=== PATIENT | male | born 1950 | race Caucasian/White ===

== ENCOUNTER 2019-12-21 11:45 | Inpatient (IN) | payer MEDICARE, OTHER ==
[~2019-12-21] VITALS: Ht 180.3 cm; Wt 103.5 kg
[2019-12-21] MEDS ORDERED: SODIUM CHLORIDE 0.9% 1000ML 1,000 ML IV STA ×2 (12:01→13:35)
--- NOTE | 2019-12-21 12:42 | Diagnostic Imaging Report ---
EXAMINATION: CHEST SINGLE (PORTABLE) INDICATION: Fever COMPARISON: None FINDINGS: LINES/TUBES:None LUNGS:The lungs are well-inflated. No focal consolidation or pulmonary edema. PLEURA:No pleural effusion or pneumothorax. MEDIASTINUM:The cardiomediastinal silhouette appears normal in size and shape. BONES/SOFT TISSUES:No acute osseous injury. ABDOMEN:No free air under the diaphragm. IMPRESSION: No focal pneumonia or pulmonary edema. Signed by: Valentine Corbett MD on 12/21/2019 12:39 PM
[2019-12-21 12:47] LABS: BASOPHILS % 0.4 % (0.0-1.0); EOSINOPHILS % 0.2 % (0.0-6.0); HEMATOCRIT 37.1 % (38.2-49.6); HEMOGLOBIN 12.4 g/dL (14.0-18.0); LYMPHOCYTES # (AUTO) 1.1 (1.0-3.2); LYMPHOCYTES % 9.5 % (18.0-39.1); MEAN CORPUSCULAR HEMOGLOBIN 29.3 pg (28-32); MEAN CORPUSCULAR HGB CONC 33.4 g/dL (31-35); MEAN CORPUSCULAR VOLUME 87.7 fL (81-99); MONOCYTES # (AUTO) 0.4 (0.2-0.8); MONOCYTES % 3.9 % (4.4-11.3); NEUTROPHILS # (AUTO) 9.6 (2.1-6.9); NEUTROPHILS % 84.6 % (38.7-80.0); PLATELET COUNT 185 x10e3/uL (140-360); RED BLOOD COUNT 4.23 x10e6/uL (4.3-5.7); RED CELL DISTRIBUTION WIDTH 14.2 % (11.7-14.4)
--- NOTE | 2019-12-21 12:57 | Emergency Department Note ---
History of Present Illnes History of Present Illness Chief Complaint: General Medicine Complaints History of Present Illness This is a 69 year old male C/O GENERALIZED WEAKNESS DIZZINESS * CLIENT HERE FOR DIZZINESS THIS MORNING GETTING OUT OF BED, STATES THAT HE HAS BEEN FEELING WEAK. RUNNING LOW GRADE TEM OF 100.5, REFERRED BY DR. DEL REAL. Historian: Patient Arrival Mode: Car Onset (how long ago): week(s) (SEVERAL) Radiation: non-radiation, back, neck, extremity, abdomen, periumbilical, flank, proximal, distal, other Severity: moderate Onset quality: gradual Duration (how long): week(s) Timing of current episode: constant Progression: worsening Context: recent illness, recent surgery, recent immobilization, recent travel, trauma/injury, new medications, hx of DVT/PE, non-compliance w/ medications, other Relieving factors: none Exacerbating factors: none Treatments prior to arrival: none Past Medical/Family History Physician Review I have reviewed the patient's past medical and family history. Any updates have been documented here. Past Medical History Recent Fever: Yes Clinical Suspicion of Infectio: Yes New/Unexplained Change in Ment: No Past Medical History: Hypertension Past Surgical History: None Social History Smoking Cessation: Current some day smoker Counseling Performed: Yes Alcohol Use: Occasional Any Illegal Drug Use: No TB Exposure/Symptoms: No Physically hurt or threatened: No Other Any Pre-Existing Lines (PICC,: No Is patient up to date on immun: Yes Last Flu: utd Last Pneumovax: utd Review of Systems Review of Systems Constitutional: weakness, other (DIZZINESS) EENTM: no symptoms Cardiovascular: no symptoms Respiratory: no symptoms Gastrointestinal: no symptoms Genitourinary: no symptoms Musculoskeletal: no symptoms Neurological: weakness, other (DIZZINESS) Psychological: no symptoms Endocrine: no symptoms Hematological/Lymphatic: no symptoms Review of other systems All other systems reviewed and negative. Physical Exam Related Data Allergies: Coded Allergies: No Known Allergies (Unverified , 12/21/19) Triage Vital Signs Vital Signs Date Time Temp Pulse Resp B/P (MAP) Pulse Ox O2 Delivery O2 Flow Rate FiO2 12/21/19 11:58 97.4 110 22 101/59 95 Vital signs reviewed: Yes Physical Exam CONSTITUTIONAL Constitutional: well-developed, well-nourished HENT HENT: normocephalic, atraumatic, oropharynx clear/moist, nose normal HENT L/R: left ext ear normal, right ext ear normal EYES Eyes: PERRL, conjunctivae normal NECK Neck: ROM normal PULMONARY Pulmonary: effort normal, breath sounds normal CARDIOVASCULAR Cardiovascular: tachycardia GASTROINTESTINAL Abdominal: soft, nontender, bowel sounds normal GENITOURINARY Genitourinary: exam deferred SKIN Skin: warm, dry MUSCULOSKELETAL Musculoskeletal: ROM normal NEUROLOGICAL Neurological: alert, oriented x 3, no gross motor or sensory deficits PSYCHOLOGICAL Psychological: mood/affect normal, judgement normal Exam - additional comments C/O generalized weakness x 2 wks dizziness and near syncope this am sen by pcp sent to ed for eval pt denies cp spb n/v/d/rich Results Laboratory Laboratory Laboratory Tests Test 12/21/19 12:26 12/21/19 12:24 White Blood Count 11.35 x10e3/uL (4.8-10.8) Red Blood Count 4.23 x10e6/uL (4.3-5.7) Hemoglobin 12.4 g/dL (14.0-18.0) Hematocrit 37.1 % (38.2-49.6) Mean Corpuscular Volume 87.7 fL (81-99) Mean Corpuscular Hemoglobin 29.3 pg (28-32) Mean Corpuscular Hemoglobin Concent 33.4 g/dL (31-35) Red Cell Distribution Width 14.2 % (11.7-14.4) Platelet Count 185 x10e3/uL (140-360) Neutrophils (%) (Auto) 84.6 % (38.7-80.0) Lymphocytes (%) (Auto) 9.5 % (18.0-39.1) Monocytes (%) (Auto) 3.9 % (4.4-11.3) Eosinophils (%) (Auto) 0.2 % (0.0-6.0) Basophils (%) (Auto) 0.4 % (0.0-1.0) Neutrophils # (Auto) 9.6 (2.1-6.9) Lymphocytes # (Auto) 1.1 (1.0-3.2) Monocytes # (Auto) 0.4 (0.2-0.8) Eosinophils # (Auto) 0.0 (0.0-0.4) Basophils # (Auto) 0.0 (0.0-0.1) Absolute Immature Granulocyte (auto 0.16 x10e3/uL (0-0.1) Prothrombin Time 14.9 seconds (11.9-14.5) Prothromb Time International Ratio 1.10 Activated Partial Thromboplast Time 36.3 seconds (23.8-35.5) Sodium Level 132 mmol/L (136-145) Potassium Level 4.3 mmol/L (3.5-5.1) Chloride Level 100 mmol/L (98-107) Carbon Dioxide Level 19 mmol/L (22-29) Anion Gap 17.3 mmol/L (8-16) Blood Urea Nitrogen 58 mg/dL (7-26) Creatinine 4.08 mg/dL (0.72-1.25) Estimat Glomerular Filtration Rate 15 ML/MIN (60-) BUN/Creatinine Ratio 14 (6-25) Glucose Level 194 mg/dL (74-118) Lactic Acid Level 1.3 mmol/L (0.5-2.0) Calcium Level 8.9 mg/dL (8.4-10.2) Magnesium Level 2.1 MG/DL (1.3-2.1) Total Bilirubin 0.5 mg/dL (0.2-1.2) Aspartate Amino Transf (AST/SGOT) 119 IU/L (5-34) Alanine Aminotransferase (ALT/SGPT) 118 IU/L (0-55) Alkaline Phosphatase 91 IU/L (40-150) Creatine Kinase 805 IU/L (30-200) Creatine Kinase MB 6.00 ng/mL (0-5.0) Troponin I < 0.001 ng/mL (0-0.300) B-Type Natriuretic Peptide 75.1 pg/mL (0-100) Total Protein 7.9 g/dL (6.5-8.1) Albumin 3.3 g/dL (3.5-5.0) Globulin 4.6 g/dL (2.3-3.5) Albumin/Globulin Ratio 0.7 (0.8-2.0) Laboratory Tests Test 12/21/19 12:26 12/21/19 12:24 Lab results reviewed: Yes Imaging Imaging results reviewed: Yes Impressions IMPRESSION: No focal pneumonia or pulmonary edema. 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- denies cp sob n/v/d rich - Dr Aguilar in eval pt status - lab ekg ordered pt medicated w/ ns bolus pt medicated w/ 2nd liter ns Assessment & Plan Final Impression: (1) SYNCOPE AND COLLAPSE (2) HYPOTENSION, UNSPECIFIED (3) ACUTE KIDNEY FAILURE, UNSPECIFIED (4) RHABDOMYOLYSIS (5) DEHYDRATION Assessment & Plan Dr Aguilar in eval pt status discussed lab ekg cxr results plan of care and need for admit Dr Aguilar spoke w/ Dr Hopson will admit Depart Disposition: ADMITTED Last Vital Signs Date Time Temp Pulse Resp B/P (MAP) Pulse Ox O2 Delivery O2 Flow Rate FiO2 12/21/19 12:29 97.7 114 20 112/79 96 Medications in the ED Sodium Chloride 1,000 ml @ 0 mls/hr Q0M STAT IV Last administered on 12/21/19at 12:43; Admin Dose 999 MLS/HR; Start 12/21/19 at 12:01; Stop 12/21/19 at 12:02 DINESH DIAZ NP December 21, 2019 12:57
[2019-12-21 13:09] LABS: ALANINE AMINOTRANSFERASE 118 IU/L (0-55); ALBUMIN 3.3 g/dL (3.5-5.0); ALBUMIN/GLOBULIN RATIO 0.7 (0.8-2.0); ALKALINE PHOSPHATASE 91 IU/L (40-150); ANION GAP 17.3 mmol/L (8-16); BLOOD UREA NITROGEN 58 mg/dL (7-26); BUN/CREATININE RATIO 14 (6-25); CALCIUM 8.9 mg/dL (8.4-10.2); CARBON DIOXIDE 19 mmol/L (22-29); CHLORIDE 100 mmol/L (98-107); CREATINE KINASE 805 IU/L (30-200); CREATININE, SERUM 4.08 mg/dL (0.72-1.25); EST GLOMERULAR FILTRATION RATE 15 ML/MIN (60-); GLUCOSE 194 mg/dL (74-118); MAGNESIUM 2.1 MG/DL (1.3-2.1); POTASSIUM 4.3 mmol/L (3.5-5.1); SODIUM 132 mmol/L (136-145)
[2019-12-21 13:12] LABS: INR 1.1; PROTHROMBIN TIME 14.9 seconds (11.9-14.5)
[2019-12-21 13:13] LABS: PARTIAL THROMBOPLASTIN TIME 36.3 seconds (23.8-35.5)
[2019-12-21 13:24] LABS: B-TYPE NATRIURETIC PEPTIDE2 75.1 pg/mL (0-100)
[2019-12-21] MEDS ORDERED: ONDANSETRON HCL INJ 2MG/ML 2ML 2 MG/ML VIAL IV PRN ×2 (14:30→21:30)
[2019-12-21] MEDS ORDERED: CEFTRIAXONE SOD 1 GM/NS 50 ML 50 ML IV SCH (14:30)
--- OUTSIDE RECORDS SUMMARY | 2019-12-21 14:33 | XMS REPORT ---
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 Allergies, Adverse Reactions, Alerts This patient has no known allergies or adverse reactions. Medications This patient has no known medications. Procedures This patient has no known procedures. Results Test Description Test Time Test Comments Results Result Comments Source CHEST SINGLE (PORTABLE) 2019-12-21 12:38:00 [place] [address] Patient Name: BIANCA ALMEIDA MR #: [id number] : 1950 Age/Sex: 69/M Req #: [id number] Adm Physician: Ordered by: KATIE DOUGLAS MD Report #: [id number] Location: ER Room/Bed: Procedure: [id number] DX/CHEST SINGLE (PORTABLE) Exam Date: 12/21/19 Exam Time: 1200 REPORT STATUS: Signed EXAMINATION: CHEST SINGLE (PORTABLE) INDICATION: Fever COMPARISON: None FINDINGS: LINES/TUBES:None LUNGS:The lungs are well-inflated. No focal consolidation or pulmonary edema. PLEURA:No pleural effusion or pneumothorax. MEDIASTINUM:The cardiomediastinal silhouette appears normal in size and shape. BONES/SOFT TISSUES:No acute osseous injury. ABDOMEN:No free air under the diaphragm. IMPRESSION: No focal pneumonia or pulmonary edema. Signed by: Areli Enrique MD on 12/21/2019 12:39 PM Dictated By: ARELI ENRIQUE MD 1239 Transcribed By: REGGIE on 12/21/19 1239 COPY TO: KATIE DOUGLAS MD
--- NOTE | 2019-12-21 15:24 | NUR ---
infectious diseases consult [id number]
--- NOTE | 2019-12-21 15:49 | Diagnostic Imaging Report ---
EXAM: CT Chest WITHOUT intravenous contrast 12/21/2019 3:15 PM INDICATION: Shortness of breath COMPARISON: Chest radiograph of earlier the same day TECHNIQUE: Chest was scanned utilizing a multidetector helical scanner from the lung apex through the level of the adrenal glands without administration of IV contrast. Coronal and sagittal reformations were obtained. Routine protocol was performed. IV CONTRAST: None RADIATION DOSE: Total DLP: 2133 mGy*cm. Dose modulation, iterative reconstruction, and/or weight based adjustment of the mA/kV was utilized to reduce the radiation dose to as low as reasonably achievable. COMPLICATIONS: None FINDINGS: LINES/ TUBES: None. LUNGS AND AIRWAYS: The central airways are patent. No focal consolidation or pulmonary edema. 6 mm posterior left lower lobe pulmonary nodule (series 9 image 56). PLEURA: The pleural spaces are clear. HEART AND MEDIASTINUM: The thyroid gland is normal. No supraclavicular or axillary lymphadenopathy. Numerous prominent mediastinal lymph nodes, the largest of which measures up to 1.6 x 1.5 cm (image 37). The heart is at the upper limits of normal in size. No pericardial effusion. Scattered atherosclerotic calcifications involve the aorta and coronary arteries. UPPER ABDOMEN: No acute findings. Right upper pole renal cyst. Small sliding hiatal hernia. BONES: No acute osseous injury. No suspicious lytic or blastic lesions. SOFT TISSUES: Unremarkable. IMPRESSION: No focal pneumonia or pulmonary edema. Nonspecific prominent mediastinal lymph nodes measuring up to 1.5 cm. Left lower lobe 6 mm pulmonary nodule. If the patient is low risk, no further follow-up is necessary. If the patient is high risk, chest CT follow-up in 12 months is optional per Fleischner society guidelines 2017. Signed by: Valentine Corbett MD on 12/21/2019 3:46 PM
--- NOTE | 2019-12-21 16:10 | Diagnostic Imaging Report ---
Examination: CT BRAIN WO CONTRAST History:Dizziness. Comparison studies:None Technique: Axial images were obtained from the skull base to the vertex. Coronal and sagittal images reconstructed from the axial data. Dose modulation, iterative reconstruction, and/or weight based adjustment of the mA/kV was utilized to reduce the radiation dose to as low as reasonably achievable. Intravenous contrast: None Findings: Scalp: No abnormalities. Bones: No fractures, blastic or lytic lesions. Brain sulci: Appropriate for age. Ventricles: Normal in size and configuration. No hydrocephalus. Extra-axial space: No abnormalities. Parenchyma: There are patchy areas of hypoattenuation in the periventricular and subcortical white matter, nonspecific. No masses, hemorrhage, or acute or chronic cortical based vascular insults.. Sellar/suprasellar region: No abnormalities. Craniocervical junction: Patent foramen magnum. No Chiari one malformation. Incidental findings: Atherosclerotic calcification of the cavernous and supraclinoid internal carotid arteries. Impression: No acute intracranial abnormalities. Chronic microvascular ischemic change. Signed by: Dr. Luciana Andrade M.D. on 12/21/2019 4:06 PM
[2019-12-21 16:28] VITALS: BP 117/54
--- NOTE | 2019-12-21 16:30 | NUR ---
RECEIVED PATIENT FROM ER TO ROOM 185. HE IS IN STABLE CONDITION. PATIENT ORIENTED TO ROOM AND POLICIES. CALL LIGHT WITHIN REACH. BED IN THE LOWEST POSITION.
[2019-12-21 16:35] VITALS: BP 117/54
[2019-12-21] MEDS ORDERED: HYDRALAZINE HCL 20 MG/ML VIAL IV PRN (17:00)
[2019-12-21] MEDS: CEFTRIAXONE SOD 1 GM/NS 50 ML 50 ML IV SCH (17:05)
[2019-12-21] MEDS: ACETAMINOPHEN 325 MG TAB PO PRN (17:05)
[2019-12-21] MEDS: SODIUM CHLORIDE 0.9% 1000ML 1,000 ML IV SCH ×2 (17:05→22:30)
[2019-12-21] MEDS: FAMOTIDINE 20 MG/2 ML VIAL IV SCH (17:24)
[2019-12-21 17:30] VITALS: BP 117/54
--- NOTE | 2019-12-21 17:48 | NUR ---
LAB CALLED TO NOTIFY THAT PATIENT'S COVID RESULTS WERE NEGATIVE. CALLED DR. SHAH, PER MD KING TO TRANSFER PATIENT TO REGULAR FLOOR.
[2019-12-21 18:20] VITALS: BP 96/55
--- NOTE | 2019-12-21 18:27 | NUR ---
ARRIVED TO UNIT AT APPROXIMATELY 1812 ON 12/21/19. AAOX3. ACYANOTIC. O2 AT 2L VIA NASAL CANNULA. NO DISTRESS NOTED. CALL LIGHT IN REACH. SIDE RAILS UP X2. BED LOW.
--- NOTE | 2019-12-21 19:37 | NUR ---
Received change of shift report from AM nurse. Walking rounds completed
[2019-12-21 19:53] LABS: CREATINE KINASE 753 IU/L (30-200)
[2019-12-21 20:27] VITALS: BP 108/77
--- NOTE | 2019-12-21 21:07 | Diagnostic Imaging Report ---
History: Intravenous Comparison studies: Same-day head CT 12/21/2019 at 15:15 hours Technique: Sagittal and axial T2 FS, axial DWI, axial T2*GRE, axial T1 FLAIR and axial coronal T2 FLAIR. Intravenous contrast: None Findings: Exam is limited by artifacts related to patient motion. Scalp: Normal in signal. No masses. Bone marrow: Normal in signal intensity. Brain sulci: Appropriate for age. Ventricles: Normal in size. No hydrocephalus. Extra axial spaces: No mass, no fluid collection. Parenchyma: No mass, gross hemorrhage or acute ischemia. A few scattered T2 FLAIR hyperintense foci in the supratentorial white matter are nonspecific but are most compatible chronic microvascular ischemic changes. Suprasellar region: No abnormalities. Craniocervical junction: Patent foramen magnum. No Chiari malformation. Vessels: Normal flow-voids in the arteries and sinuses. Mastoid cavities: Nonspecific reactive right mastoid T2 hyperintense changes or effusion. Included paranasal sinuses: Scattered nonspecific mucosal thickening in the paranasal sinuses with small maxillary sinus retention cyst. IMPRESSION: Limited exam due to motion artifacts. In spite of limitations: 1. No acute intracranial abnormalities. 2. Mild chronic microvascular ischemic changes. Signed by: Dr. Blane Infante M.D. on 12/21/2019 9:03 PM
[2019-12-21] MEDS ORDERED: GUAIFENESIN/CODEINE 10 ML CUP PO PRN (21:30)
--- NOTE | 2019-12-21 22:42 | Consultation ---
DATE OF CONSULTATION: Pulmonary Critical Care Consultation` CHIEF COMPLAINT: Malaise and fatigue. REFERRING PHYSICIAN: Reginald Hopson MD. HISTORY OF PRESENT ILLNESS: The patient is 69-year-old man. He denies any prior cardiopulmonary history. He was feeling lightheaded and weak over the past several days. He therefore came to the ER and was discovered to have a creatinine of 4. He also had a fever in the emergency department although he denied any fevers at home. He does not complain of cough or difficulty breathing. PAST MEDICAL HISTORY: The patient denies any prior heart problems. He denies respiratory problems. PAST SURGICAL HISTORY: The patient denies any past surgeries. ALLERGIES: NO KNOWN DRUG ALLERGIES. SOCIAL HISTORY: The patient never smoked cigarettes. He says he did smoke cigars. He is not a drinker. FAMILY HISTORY: Noncontributory. REVIEW OF SYSTEMS: The patient was afebrile. He has no headache. He has no neck pain. He is not having any chest pain. He denies dyspnea or cough. He did not complain of any abdominal pain. There is no nausea or vomiting. He has no leg edema. PHYSICAL EXAMINATION: VITAL SIGNS: The patient is afebrile. The vital signs are stable. HEENT: No facial swelling or erythema. CARDIAC: Regular rate and rhythm with normal S1 and S2. LUNGS: Auscultation of the lungs reveals clear breath sounds bilaterally. There is no wheezing. ABDOMEN: Soft and nontender. There is no rebound or guarding. EXTREMITIES: No leg edema or calf tenderness. There is no cyanosis or clubbing. SKIN: No rashes. NEUROLOGICAL: No focal abnormalities. LABORATORY DATA: BUN to creatinine ratio is 58 is 4.08. Carbon dioxide is 19. Sodium is 132. Blood sugar is 194. AST is 119 and the ALT is 180. Albumin is 3.3. White blood cell count is 11.3 and hemoglobin is 12.4. The platelet count is 185,000. RADIOGRAPHIC DATA: CT scan of the chest shows nonspecific mediastinal lymph node enlargement measuring up to 1.5 cm. There is a 6 mm nodule in the left lower lobe. CT scan of the brain shows no acute disease. IMPRESSION: 1. Acute renal failure. 2. Fever of unclear etiology. 3. Pulmonary nodule. 4. Elevated AST and ALT consistent with some hepatic inflammation. PLAN: 1. The patient will receive intravenous fluids. 2. Renal ultrasound. 3. Panculture. The patient to begin antibiotics. 4. Followup CT as an outpatient in 6 months for the pulmonary nodule. MD MAYE Eagle/CONSTANTINE /[id number]
--- NOTE | 2019-12-21 22:47 | Consultation ---
DATE OF CONSULTATION: REASON FOR CONSULTATION: Fever, chills, fatigue. HISTORY OF PRESENT ILLNESS: Mr. Luz is very pleasant 69-year-old male who has history of diabetes mellitus, history of hypertension, comes in with fever and chills for 2 weeks, not feeling well, low fever, not feeling well in general. There is no other specific complaint. There is no cough, no shortness of breath. No sore throat, nausea, vomiting, diarrhea, urgency, frequency, or skin rash. The patient was sent here to be evaluated and is being admitted since the suspicion of COVID-19 is being ruled out. PAST MEDICAL HISTORY: Diabetes mellitus. PAST SURGICAL HISTORY: As above. ALLERGIES: NKA. SOCIAL HISTORY: There is no smoking, drug abuse, or alcohol abuse. FAMILY HISTORY: Otherwise, noncontributory. HOME MEDICATIONS: Reviewed. Chart reviewed. LABORATORY DATA: White count 11.35, hemoglobin 12. His BUN is 14, lactic acid 1.3. CT of the chest and brain was ordered, still pending. Chest x-ray showed no pneumonia. Since admission here, there is no fever. MEDICATIONS: He is currently on ceftriaxone. PHYSICAL EXAMINATION: GENERAL: He is currently alert and oriented, does not seem to be in acute distress. VITAL SIGNS: Stable. Currently afebrile. HEENT: He is not icteric. NECK: Supple. CHEST: Clear. HEART: S1, S2. ABDOMEN: Soft. IMPRESSION: Fever, chills, concerned about infection. Source is unclear. Agree with workup. We will put the patient on Rocephin for the time being. Recheck CBC. Recheck Chem panel. Further recommendations to follow. MD ESTELLA Garza/MODL /[id number]
[2019-12-22] VITALS (8 sets, daily range): BP systolic 121–142; BP diastolic 57–69
--- NOTE | 2019-12-22 | NUR ---
Dr Hatch on the floor to see patient. Will check orders.
--- NOTE | 2019-12-22 02:58 | Consultation ---
DATE OF CONSULTATION: 12/21/2019 Nephrology Consultation CHIEF COMPLAINT: Dizziness, dehydration, acute kidney injury. REASON FOR CONSULTATION: CYNDY. HISTORY OF PRESENT ILLNESS: A 69-year-old male, morbidly obese, very poor historian, has a history of hypertension, in which he takes antihypertensive medications. He reports to the ER with complaints of dizziness, lightheadedness, and fever ongoing for the last 2-3 days at home. 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 He reports that he has been drinking enough fluids and eating at home and also endorses some cough and some fever at home. He denies any sick exposures. When I interviewed him, I stated has he been at home over the last several weeks, he initially said yes, but then mentions to me that he works at a [employer], which he is around people. He denies anybody sick at the [email or web address]. He denies any chest pain, palpitation, nausea, or vomiting. The patient had a fever during my evaluation. He seems to be a bit confused when I talked to him, not sure with the patient's true baseline and there is no family at bedside. Nephrology was consulted for acute kidney injury presumed to be from underlying dehydration. He also had some underlying rhabdomyolysis. REVIEW OF SYSTEMS: Pertinent positives are cough, congestion, fever, weakness, dizziness. The rest of 14-point review of systems have been reviewed with the patient and are negative. ALLERGIES: NO KNOWN DRUG ALLERGIES. HOME MEDICATIONS: Currently not available at this time. PAST MEDICAL HISTORY: Reports having hypertension and he cannot tell me anything else. PAST SURGICAL HISTORY: Reports none. FAMILY HISTORY: Hypertension, diabetes. SOCIAL HISTORY: No drugs. No alcohol. Does not smoke. He works at a [employer]. PHYSICAL EXAMINATION: VITAL SIGNS: Temperature is 101.6, pulse 108, respiratory rate is 18, blood pressure 108/77, pulse ox 95% and he is on 2 L nasal cannula. GENERAL: Not in acute distress. He is alert, oriented x3. Cooperative on examination. HEENT: Head is normocephalic, atraumatic. Eyes; pupils are equal and reactive to light bilaterally. Extraocular movements are intact bilaterally. Throat; no evidence of erythema or exudates in the posterior pharynx. Has poor dentition. NECK: Supple. Good range of motion. PULMONARY: Clear to auscultation bilaterally. No wheezing, rales, or rhonchi. No crackles appreciated. CARDIOVASCULAR: Positive S1, S2. No murmurs, rubs, or gallops appreciated. ABDOMEN: Soft, nondistended, nontender to palpation. Bowel sounds present. MUSCULOSKELETAL: Strength is 5/5 throughout. No evidence of any muscle deficits on examination. No weakness appreciated. NEUROLOGIC: Cranial nerves 2 through 12 are grossly intact. No evidence of any neurological deficits on exam. SKIN: Intact. Warm to touch. Good cap refill. PSYCHIATRIC: Normal affect and mood. EXTREMITIES: No edema. Good range of motion throughout. LABORATORY DATA: White count 11.3, hemoglobin 12.4, hematocrit 37, platelets of 185. Coagulation; 14.9, INR 1.1, PTT 36. Chemistry; sodium 132, potassium 4.3, chloride is 100, bicarbonate is 19, his anion gap of 17, BUN is 58, creatinine is 4.08, GFR 15, glucose 194. Lactic acid 1.3, calcium 8.9, magnesium 2.1. LFTs show a total bilirubin is 0.5, AST is 119, ALT 118, alk phos 91. CK 805 downtrended to 753, CK-MB 6 then 8.1. Troponins negative x2. BNP 75. Total protein 7.9, albumin is 3.3. Coronavirus PCR nondetected. Influenza was negative. Microbiology; blood cultures no growth. IMAGING STUDIES: Chest x-ray shows no focal pneumonia or pulmonary edema. CT of the brain, no acute intracranial abnormality. CT chest shows no focal pneumonia or pulmonary edema. Nonspecific prominent mediastinal lymph node measuring 1.5 cm. Left lower lobe 6 mm pulmonary nodule. Outpatient followup is indicated. MRI of the brain shows no acute intracranial abnormality. Mild chronic microvascular ischemic changes. IMPRESSION: 1. Fever, presumed to be viral upper respiratory infection symptoms. 2. Acute kidney injury, likely secondary to dehydration. 3. Rhabdomyolysis. 4. Anion gap metabolic acidosis. PLAN: At this time, his electrolytes seem to be stable, but his BUN and creatinine are elevated likely to be from dehydration. Clinically, the patient looks dehydrated. We are going to avoid nephrotoxic agents and continue with IV fluids for now. We do not have any creatinines to compare in the past. We will get a renal ultrasound. In terms of his fever, his coronavirus PCR was found to be negative and his flu was negative. It could be he just has viral URI like symptoms. We are going to continue with IV Rocephin for now. His MRI and CT of the brain were found to be negative. At this time, the etiology of his fever is likely to be viral in nature. ID has been consulted. We will repeat chemistries in the morning. We will put him on Lovenox for DVT prophylaxis. MD RADHA Mariano/CONSTANTINE /[id number]
--- NOTE | 2019-12-22 03:33 | NUR ---
Patient denies pain or discomfort at this time.Continue monitor.
[2019-12-22] MEDS: CEFTRIAXONE SOD 1 GM/NS 50 ML 50 ML IV SCH ×2 (05:00→18:00)
[2019-12-22 05:51] LABS: BASOPHILS # (AUTO) 0.1 (0.0-0.1); BASOPHILS % 0.5 % (0.0-1.0); EOSINOPHILS % 0.1 % (0.0-6.0); HEMATOCRIT 34.6 % (38.2-49.6); HEMOGLOBIN 11.3 g/dL (14.0-18.0); LYMPHOCYTES # (AUTO) 1.1 (1.0-3.2); MEAN CORPUSCULAR HEMOGLOBIN 29.9 pg (28-32); MEAN CORPUSCULAR HGB CONC 32.7 g/dL (31-35); MEAN CORPUSCULAR VOLUME 91.5 fL (81-99); MONOCYTES # (AUTO) 0.3 (0.2-0.8); NEUTROPHILS # (AUTO) 9.2 (2.1-6.9); NEUTROPHILS % 85.6 % (38.7-80.0); PLATELET COUNT 160 x10e3/uL (140-360); RED BLOOD COUNT 3.78 x10e6/uL (4.3-5.7); RED CELL DISTRIBUTION WIDTH 14.5 % (11.7-14.4)
[2019-12-22 06:03] LABS: ALBUMIN 2.8 g/dL (3.5-5.0); ALBUMIN/GLOBULIN RATIO 0.7 (0.8-2.0); ANION GAP 14.5 mmol/L (8-16); CALCIUM 7.8 mg/dL (8.4-10.2); CREATINE KINASE 838 IU/L (30-200); CREATININE, SERUM 3.48 mg/dL (0.72-1.25); POTASSIUM 4.5 mmol/L (3.5-5.1)
[2019-12-22 06:27] LABS: CHOL/HDL RATIO 12.9 (3.9-4.7)
[2019-12-22 06:47] LABS: THYROID STIMULATING HORMONE 0.506 uIU/mL (0.350-4.940)
--- NOTE | 2019-12-22 08:01 | NUR ---
ASSUMED CARE AT APPROXIMATELY 0715. AWAKE AND ALERT. ACYANOTIC. NO DISTRESS NOTED. INSTRUCTED PATIENT TO INFORM HIS SPOUSE TO BRING HIS HOME MEDICINE LIST TODAY. PATIENT VERBALIZED UNDERSTANDING.
[2019-12-22] MEDS: FAMOTIDINE 20 MG/2 ML VIAL IV SCH ×2 (08:24→18:00)
--- NOTE | 2019-12-22 12:08 | NUR ---
CALLED PATIENT'S SPOUSE, ANNIE ALMEIDA, AT APPROXIMATELY 1202 VIA NUMBER PROVIDED ([phone]). THE PHONE RANG ONCE AND IMMEDIATELY WENT TO VOICEMAIL. CALL BACK NUMBER LEFT ON VOICEMAIL.
[2019-12-22 12:55] LABS: AMPHETAMINES SCREEN,URINE NEGATIVE (NEGATIVE); BENZODIAZEPINES SCREEN,URINE NEGATIVE (NEGATIVE); PHENCYCLIDINE SCREEN,URINE NEGATIVE (NEGATIVE)
[2019-12-22 13:08] LABS: CLARITY,URINE CLEAR (CLEAR); COLOR,URINE YELLOW (YELLOW)
[2019-12-22 13:09] LABS: BILIRUBIN,URINE NEGATIVE (NEGATIVE); KETONES,URINE NEGATIVE (NEGATIVE); LEUKOCYTE ESTERASE ,URINE NEGATIVE (NEGATIVE); NITRITE,URINE NEGATIVE (NEGATIVE); PROTEIN,URINE DIPSTICK 2+ (NEGATIVE); URINE UROBILINOGEN 0.2 mg/dL (0.2 - 1)
[2019-12-22 13:26] LABS: BACTERIA,URINE MANY /HPF; EPITHELIAL CELLS,URINE FEW /LPF
[2019-12-22] MEDS: SODIUM CHLORIDE 0.9% 1000ML 1,000 ML IV SCH ×3 (14:30→20:04)
[2019-12-22] MEDS ORDERED: ASPIR 8181 MG PO (14:37)
[2019-12-22] MEDS ORDERED: HYDROCHLOROTHIA25 MG PO (14:37)
[2019-12-22] MEDS ORDERED: ZYRTEC10 M3 PO (14:37)
[2019-12-22] MEDS ORDERED: CENTRUM SILVER1 EAC4 PO (14:37)
[2019-12-22] MEDS ORDERED: LISINOPRIL10 MG PO (14:37)
[2019-12-22] MEDS ORDERED: PEPCID20 MG PO (14:37)
--- NOTE | 2019-12-22 14:43 | NUR ---
PATIENT'S BROTHER CAME WITH PATIENT'S MEDICINES AND INFORMED PATIENT THAT ANNIE ALMEIDA IS VERY ILL. PATIENT THEN CHANGED VISITOR LIST TO DESIGNATE BROTHER THE VISITOR DURING THIS HOSPITAL ADMISSION.
[2019-12-22 14:51] LABS: CREATINE KINASE MB 10.9 ng/mL (0-5.0)
--- NOTE | 2019-12-22 16:00 | Progress Note ---
DATE: 12/22/2019 Nephrology Progress Note SUBJECTIVE: The patient is doing a little better today. Still has fever on and off. Coronavirus PCR will be repeated here later this afternoon. I spoke with ID, agrees with repeating the PCR due to elevated ferritin of greater than 8800. PHYSICAL EXAMINATION: VITAL SIGNS: Temperature is 99.7, T-max 101.6, pulse is 99, respiratory rate is 18, blood pressure 122/58, and pulse ox 95% on room air. GENERAL: In no acute distress, alert and oriented x3, cooperative on examination. HEENT: Head is normocephalic and atraumatic. Eyes, pupils are reactive to light bilaterally. Extraocular movements are intact bilaterally. Throat; no evidence of erythema or exudates in the posterior pharynx. Has poor dentition. NECK: Supple. Good range of motion throughout. PULMONARY: Clear to auscultation bilaterally. No wheezing, rales, or rhonchi. No crackles appreciated. CARDIOVASCULAR: Positive S1, S2. No murmurs, rubs, or gallops appreciated. ABDOMEN: Soft, nondistended, and nontender to palpation. MUSCULOSKELETAL: Strength is 5/5 throughout. No evidence of any muscle deficits on examination. No weakness appreciated. NEUROLOGIC: Cranial nerves II through XII grossly intact. No evidence of any neurological deficits on exam. SKIN: Intact. Warm to touch. Good cap refill. PSYCHIATRIC: Normal affect and mood. EXTREMITIES: No edema. Good range of motion throughout. LABORATORY FINDINGS: Showed white count 10.7, hemoglobin 11.3, hematocrit 35.6, and platelets of 160. Chemistry, sodium 132, potassium 4.5, chloride 104, bicarb 19, anion gap of 14, BUN is 60, creatinine is 3.48, and glucose is 129, hemoglobin A1c is 6.3. Lactic acid is 1.3. Calcium is 7.8. Ferritin level was found to be 8897. LFTs, total bilirubin is 0.5, AST 113, ALT 107, alkaline phosphatase 85, and LDH is still pending. Troponins were all negative. CK was 838. Albumin was 2.8. TSH is 0.506. LDL was 87. Urine drug screen was negative. Coronavirus PCR and flu were negative. MICROBIOLOGY: No growth. Urine cultures are pending. IMAGING STUDIES: CT of the abdomen and pelvis and carotid ultrasound study are pending. IMPRESSION: 1. Fever of unknown etiology. 2. Acute kidney injury secondary to dehydration. 3. Rhabdomyolysis. 4. Anion gap metabolic acidosis. PLAN: At this time, from a renal standpoint, his anion gap is 14, much improved and his bicarb is 19. He does have some acidosis. Creatinine down trending from 4 to 3.48. Continue with aggressive IV fluid hydration. Replace electrolytes. He does have an elevated ferritin, unknown cause. I did speak with ID, recommends repeating the coronavirus PCR, which we did. We also ordered a STAT ferritin level to confirm. Otherwise, etiology for his fever at this time is unknown. MD RADHA Mariano/MODL /[id number]
--- NOTE | 2019-12-22 16:10 | Progress Note ---
DATE: SUBJECTIVE: The patient's coronavirus PCR was negative. The patient has received fluids and the creatinine is decreased to 3.48. The patient still has fevers. PHYSICAL EXAMINATION: VITAL SIGNS: Blood pressure is 122/58 and saturation is 95%. The T max is 100.7 and the temperature is 99.7 now. HEENT: Shows no facial swelling or erythema. CARDIAC: Reveals regular rate and rhythm with normal S1, S2. LUNGS: Auscultation of lungs revealed clear breath sounds bilaterally. There is no wheezing. ABDOMEN: Soft, nontender. There is no rebound or guarding. EXTREMITIES: Show no leg edema or calf tenderness. There is no cyanosis or clubbing. SKIN: Shows no rashes. LABORATORY DATA: Creatinine is 3.48 and BUN is 60. The carbon dioxide is 19, and the sodium is 133. The albumin is 2.8. White blood cell count is 10.7, hemoglobin is 11.3, and the platelet count is 160. IMPRESSION: 1. Acute renal failure. 2. Fever of unclear etiology. 3. Pulmonary nodule. 4. Elevated AST and ALT. PLAN: 1. Continue IV hydration. 2. Continue to monitor creatinine. 3. Continue antibiotics. 4. Repeat coronavirus PCR to exclude the possible false-negative. 5. The patient will need a repeat CT scan in 6 months to follow up the pulmonary nodule. MD MAYE Eagle/PATSYL /[id number]
[2019-12-22] MEDS: ENOXAPARIN SOD INJ 40 MG/0.4 ML SYR SC SCH (18:00)
--- NOTE | 2019-12-22 19:20 | NUR ---
received report from day nurse. patient is resting comfortably in the bed. bed is in the lowest position and call andrea is within reach. will continue to monitor patient.
[2019-12-22] MEDS: ACETAMINOPHEN 325 MG TAB PO PRN (20:04)
[2019-12-23] VITALS (7 sets, daily range): BP systolic 115–142; BP diastolic 61–70
[2019-12-23] MEDS: SODIUM CHLORIDE 0.9% 1000ML 1,000 ML IV SCH ×3 (03:21→15:12)
[2019-12-23] MEDS: CEFTRIAXONE SOD 1 GM/NS 50 ML 50 ML IV SCH ×2 (05:13→16:33)
[2019-12-23 05:57] LABS: BASOPHILS % 0.2 % (0.0-1.0); EOSINOPHILS % 0.2 % (0.0-6.0); HEMATOCRIT 32.4 % (38.2-49.6); HEMOGLOBIN 10.5 g/dL (14.0-18.0); LYMPHOCYTES # (AUTO) 0.9 (1.0-3.2); LYMPHOCYTES % 7.7 % (18.0-39.1); MEAN CORPUSCULAR HEMOGLOBIN 29.1 pg (28-32); MEAN CORPUSCULAR HGB CONC 32.4 g/dL (31-35); MEAN CORPUSCULAR VOLUME 89.8 fL (81-99); MONOCYTES # (AUTO) 0.2 (0.2-0.8); MONOCYTES % 1.7 % (4.4-11.3); NEUTROPHILS # (AUTO) 10.9 (2.1-6.9); NEUTROPHILS % 89.1 % (38.7-80.0); PLATELET COUNT 134 x10e3/uL (140-360); RED BLOOD COUNT 3.61 x10e6/uL (4.3-5.7); RED CELL DISTRIBUTION WIDTH 14.9 % (11.7-14.4)
[2019-12-23 06:22] LABS: ALBUMIN 2.6 g/dL (3.5-5.0); ALBUMIN/GLOBULIN RATIO 0.7 (0.8-2.0); ANION GAP 14.6 mmol/L (8-16); CALCIUM 7.7 mg/dL (8.4-10.2); CREATININE, SERUM 3.65 mg/dL (0.72-1.25); POTASSIUM 4.6 mmol/L (3.5-5.1)
--- NOTE | 2019-12-23 06:31 | Diagnostic Imaging Report ---
EXAM: CT Abdomen and Pelvis WITHOUT contrast INDICATION: leukocytosis/fever COMPARISON: TECHNIQUE: Abdomen and pelvis were scanned utilizing a multidetector helical scanner from the lung base to the pubic symphysis without administration of IV contrast. Absence of intravenous contrast decreases sensitivity for detection of focal lesions and vascular pathology. Coronal and sagittal reformations were obtained. Routine protocol was performed. IV CONTRAST: None ORAL CONTRAST: None COMPLICATIONS: None RADIATION DOSE: Total DLP: 911 mGy*cm Estimated effective dose: (DLP x 0.015 x size factor) mSv CTDIvol has been reviewed. It is below the limits set by the Radiation Protocol Committee (RPC). Dose modulation, iterative reconstruction, and/or weight based adjustment of the mA/kV was utilized to reduce the radiation dose to as low as reasonably achievable. FINDINGS: LINES and TUBES: None. LOWER THORAX: Low density of blood pool in the left ventricular cavity. Mild cardiomegaly. Coronary artery calcifications. Aortic valve calcifications. HEPATOBILIARY: Hypodense liver. No focal hepatic lesions. No biliary ductal dilation. GALLBLADDER: No radio-opaque stones or sludge. No wall thickening. SPLEEN: No splenomegaly. PANCREAS: No focal masses or ductal dilatation. ADRENALS: No adrenal nodules KIDNEYS/URETERS: No hydronephrosis. No solid mass lesions. No stones. Simple right renal cysts, largest measures 4.3 cm. Bilateral perinephric fat stranding . GI TRACT: No abnormal distention, wall thickening, or evidence of bowel obstruction. Appendix is normal. PELVIC ORGANS/BLADDER: Unremarkable. LYMPH NODES: No lymphadenopathy. VESSELS: Scattered mild arterial vascular calcifications. PERITONEUM / RETROPERITONEUM: No free air or fluid. BONES: There are degenerative changes in the spine. SOFT TISSUES: There are fat containing inguinal hernias. IMPRESSION: 1. Coronary artery calcific atherosclerosis and mild cardiomegaly. 2. CT findings of anemia. 3. Hepatic steatosis. 4. Bilateral perinephric fat stranding is likely due to renal insufficiency or senescence, pyelonephritis is a less likely consideration. Correlate with urinalysis. Signed by: Talha Yang DO on 12/23/2019 6:27 AM
--- NOTE | 2019-12-23 06:34 | NUR ---
patient is resting comfortably in the bed. bed is in lowest position and call light is within reach.
--- NOTE | 2019-12-23 07:37 | NUR ---
ASSUMED CARE. RESTING IN BED WITH EYES CLOSED. NASAL CANNULA NOTED ON PATIENT'S PILLOW. ACYANOTIC. NO DISTRESS NOTED. CALL LIGHT IN REACH. SIDE RAILS UP X2. BED LOW.
[2019-12-23] MEDS: FAMOTIDINE 20 MG/2 ML VIAL IV SCH ×2 (09:11→16:33)
[2019-12-23] MEDS: FENOFIBRATE 145 MG TAB PO SCH (09:11)
[2019-12-23] MEDS: ASPIRIN 81 MG CHEW TAB PO SCH (09:11)
--- NOTE | 2019-12-23 10:09 | NUR ---
PATIENT AWAKE FROM NAP, CONFUSED. PATIENT PULLED IV FROM RIGHT HAND. BLEEDING CONTROLLED. NO DISTRESS NOTED.
--- NOTE | 2019-12-23 12:28 | Progress Note ---
DATE: SUBJECTIVE: Second coronavirus PCR was negative. The patient still complains of weakness and fatigue. He has some dyspnea and shortness of breath. He does not have fevers. PHYSICAL EXAMINATION: VITAL SIGNS: Saturation is 93% on room air. His blood pressure is 142/70 and his pulse is 102. HEENT: No facial swelling or erythema. CARDIAC: Regular rate and rhythm with normal S1 and S2. LUNGS: Auscultation of the lungs reveals a few expiratory wheezes bilaterally. ABDOMEN: Soft, nontender. There is no rebound or guarding. EXTREMITIES: 1 to 2+ leg edema. LABORATORY DATA: White blood cell count is 12.2 and hemoglobin is 10.5. The platelet count is 134,000. The BUN to creatinine ratio is 61 to 3.65 and the carbon dioxide is 18. IMPRESSION: 1. Acute renal failure. 2. Pulmonary nodule. 3. Fever of unclear etiology. 4. Elevated AST and ALT. 5. Anemia, unspecified. 6. Thrombocytopenia. PLAN: 1. Continue IV hydration. 2. Discuss case with Nephrology. 3. Await results of renal ultrasound. 4. Continue current antibiotics. Kenyon Patterson MD [facility]/MODL /[id number]
--- NOTE | 2019-12-23 14:37 | Diagnostic Imaging Report ---
Hepatobiliary Scan with Gallbladder Ejection Fraction Clinical information: RUQ abdominal pain Report: Following intravenous administration of 6.6 millicuries of Tc-99m mebrofenin, dynamic images of the abdomen in the anterior projection were obtained through 45 minutes. Sincalide (CCK analog) 2.4 micrograms was administered intravenously over 30 minutes with additional imaging for determination of gallbladder ejection fraction. Perfusion to the liver is normal. Extraction of tracer from the blood pool by the liver parenchyma is normal. Tracer is seen promptly within the biliary tract. The gallbladder begins to fill by 16 minutes post-injection of tracer and fills adequately. Tracer is seen in the small bowel by 12 minutes. The gallbladder ejection fraction with administration of sincalide is 99% (normal greater than 40%). Impression: 1. Filling of the gallbladder excludes the diagnosis of acute cystic duct obstruction/acute cholecystitis. 2. Normal gallbladder ejection fraction of 99% does not support the clinical diagnosis of chronic cholecystitis/gallbladder dyskinesia. Signed by: Dr. Lizzette Malhotra M.D. on 12/23/2019 2:33 PM
[2019-12-23 16:25] LABS: HIV 1&2 AB SCREEN NON-REACTIVE (NONREACTIVE)
[2019-12-23] MEDS: ENOXAPARIN SOD INJ 40 MG/0.4 ML SYR SC SCH (16:33)
--- NOTE | 2019-12-23 17:34 | Progress Note ---
DATE: 12/23/2019 Renal Progress Note SUBJECTIVE: The patient is doing well today with no complaints. He is in the process of getting an ultrasound of his right upper quadrant. PHYSICAL EXAMINATION: VITAL SIGNS: Temperature is 98.4, pulse 101, respiratory rate is 20, blood pressure 124/69, pulse ox 93% on room air. GENERAL: No acute distress, alert and oriented x3, cooperative on examination. HEENT: Head is normocephalic and atraumatic. Eyes, pupils are reactive to light bilaterally. Extraocular movements are intact bilaterally. Throat; no evidence of erythema or exudates in the posterior pharynx. Has poor dentition. NECK: Supple. Good range of motion throughout. PULMONARY: Clear to auscultation bilaterally. No wheezing, rales, or rhonchi. No crackles appreciated. CARDIOVASCULAR: Positive S1, S2. No murmurs, rubs, or gallops appreciated. ABDOMEN: Soft, nondistended, and nontender to palpation. Bowel sounds present. MUSCULOSKELETAL: Strength is 5/5 throughout. No evidence of any muscle deficits on examination. No weakness appreciated. NEUROLOGIC: Cranial nerves II through XII grossly intact. No evidence of any neurological deficits on exam. SKIN: Intact. Warm to touch. Good cap refill. PSYCHIATRIC: Normal affect and mood. EXTREMITIES: No edema. Good range of motion throughout. LABORATORY DATA: Labs show white count 12.2, hemoglobin 10.5, hematocrit 32, platelets of 134. Coagulation, PT 14, INR 1.1, PTT 36. Chemistry, sodium 133, potassium 4.2, chloride 105, bicarb 18, anion gap of 14, BUN is 61, creatinine is 3.65, glucose 127, hemoglobin A1c 6.3, ferritin level was 11,019, calcium 7.7, AST 153, ALT was 121. CK is 1014. Urinalysis; 2+ protein, 11 to 20 rbc's. Coronavirus review was found to be negative. Flu was negative. Hepatitis panel, EBV, CMV been ordered. Blood cultures, no growth. Urine cultures, no growth. IMAGING STUDIES: HIDA scan shows filling gallbladder excludes the diagnosis of acute cholecystitis. Normal ejection fraction of 99%. Does not support diagnosis of gallbladder dyskinesia. IMPRESSION: 1. Fever of unknown etiology. 2. Acute kidney injury, presumed to be from dehydration. 3. Rhabdomyolysis. 4. Anion gap metabolic acidosis. PLAN: At this time from a renal standpoint, his renal function has not improved. It did improve initially on admission down trended yesterday, but today it back up again. His ferritin is still elevated. His CK still elevated. I am not sure. It seems like this patient may have some rheumatological disorder going on at this time. From a renal standpoint, I would like to order a renal ultrasound, which will be performed tomorrow, urine electrolytes including urine sodium, urine chloride, UPC, microalbumin to creatinine, urine eosinophils as well as urine chloride for further assistance. Also go ahead and get a p-ANCA, c-ANCA, anti-GBM as well as UPEP, SPEP. We will also go ahead and get an HIV panel. Acute hepatitis panel has been ordered. Monitor his renal function closely. Put on a renal diet. MD RADHA Mariano/CONSTANTINE /[id number]
--- NOTE | 2019-12-23 18:33 | NUR ---
TRANSFERRED FROM ROOM 113. MADE COMFORTABLE. DENIES DISCOMFORT. ABLE TO MAKE NEEDS KNOWN. IN NO APPARENT DISTRESS. HAS A COUGH, BUT DENIES ANY PAIN OR SOB.
[2019-12-23] MEDS: ACETAMINOPHEN 325 MG TAB PO PRN (19:58)
--- NOTE | 2019-12-23 20:00 | NUR ---
Received change of shift report from AM nurse. Walking rounds completed.
[2019-12-23 21:32] LABS: CREATININE,URINE RANDOM 154.69 mg/dL (63-166); SODIUM,URINE 41 mmol/L
--- NOTE | 2019-12-23 21:35 | NUR ---
Patient temp at 102.7 and o2 sat at 88%. Patient given tylenol and placed on o2 at 3L n/c. Sat at 92-95%. Continue monitor.
--- NOTE | 2019-12-23 21:39 | NUR ---
Called And s/w Jami Bernard COMPLAINT CLERK. Informed of patient elevated temp and desat to 88%. Also informed her of daughter statement of possible black mold. Soctoe aware.
[2019-12-23 22:30] LABS: EOSINOPHIL SMEAR,URINE NONE SEEN (NONE SEEN)
[2019-12-24] VITALS (8 sets, daily range): BP systolic 91–136; BP diastolic 38–69
[2019-12-24] MEDS: CEFTRIAXONE SOD 1 GM/NS 50 ML 50 ML IV SCH ×2 (04:14→16:30)
[2019-12-24] MEDS: SODIUM CHLORIDE 0.9% 1000ML 1,000 ML IV SCH ×3 (06:30→22:30)
[2019-12-24 08:23] LABS: BASOPHILS % 0.2 % (0.0-1.0); EOSINOPHILS % 0.2 % (0.0-6.0); HEMATOCRIT 33.7 % (38.2-49.6); HEMOGLOBIN 10.7 g/dL (14.0-18.0); LYMPHOCYTES % 7.6 % (18.0-39.1); MEAN CORPUSCULAR HEMOGLOBIN 28.9 pg (28-32); MEAN CORPUSCULAR HGB CONC 31.8 g/dL (31-35); MEAN CORPUSCULAR VOLUME 91.1 fL (81-99); MONOCYTES # (AUTO) 0.3 (0.2-0.8); NEUTROPHILS # (AUTO) 11.6 (2.1-6.9); NEUTROPHILS % 89.2 % (38.7-80.0); PLATELET COUNT 132 x10e3/uL (140-360); RED CELL DISTRIBUTION WIDTH 15.6 % (11.7-14.4)
[2019-12-24] MEDS: FAMOTIDINE 20 MG/2 ML VIAL IV SCH ×2 (08:32→16:30)
[2019-12-24] MEDS: ASPIRIN 81 MG CHEW TAB PO SCH (08:32)
[2019-12-24] MEDS: FENOFIBRATE 145 MG TAB PO SCH (08:32)
[2019-12-24 09:06] LABS: ALBUMIN 2.5 g/dL (3.5-5.0); ALBUMIN/GLOBULIN RATIO 0.6 (0.8-2.0); ANION GAP 18.4 mmol/L (8-16); CALCIUM 7.9 mg/dL (8.4-10.2); CREATININE, SERUM 6.27 mg/dL (0.72-1.25); MAGNESIUM 2.3 MG/DL (1.3-2.1); POTASSIUM 5.4 mmol/L (3.5-5.1)
--- NOTE | 2019-12-24 09:18 | Diagnostic Imaging Report ---
EXAM: Right Upper Quadrant Ultrasound with Doppler INDICATION: Elevated LFTs COMPARISON: Abdominal CT 12/22/2019 TECHNIQUE: Transverse and longitudinal images of the right upper abdomen were obtained. Grayscale, color Doppler and spectral waveform analysis of the hepatic vasculature and splenic vein were performed. FINDINGS: Liver: Size: 15.5 cm in the right midclavicular line, normal Appearance: Increased echogenicity, smooth contour Mass: No focal masses Gallbladder: Stones/Sludge: None Wall: 0.24 cm Appearance: No pericholecystic fluid or hydrops. Sonographic Lynne's Sign: Negative Bile Ducts: Intrahepatic Ducts: No dilatation Extrahepatic Ducts: Common bile duct measures 0.33 cm, no dilatation Pancreas: Not seen. Right Kidney: Size: 14.8 cm Echogenicity: Normal Parenchymal thickness: Normal Collecting system: No hydronephrosis Stones: None Cyst/Mass: Simple right renal cyst. Vessels: Main Portal Vein: Diameter: 1 cm, normal. Normal flow direction. Aorta: Not seen. Inferior Vena Cava: Visualized portions are normal Free Fluid: No ascites or pleural effusion IMPRESSION: Hepatic steatosis. Benign appearing right renal cysts. Signed by: Talha Yang DO on 12/24/2019 9:14 AM
--- NOTE | 2019-12-24 09:19 | Diagnostic Imaging Report ---
EXAM: Renal Ultrasound INDICATION: Renal failure COMPARISON: Abdominal CT 12/22/2019 TECHNIQUE: Transverse and longitudinal images of the kidneys and bladder were obtained. FINDINGS: Right Kidney: Size: 14.12 cm Echogenicity: Normal Parenchymal thickness: Normal Collecting system: No hydronephrosis Stones: None Cyst/Mass: Simple cysts Left Kidney: Size: 10.95 cm Echogenicity: Normal Parenchymal thickness: Normal Collecting system: No hydronephrosis Stones: None Cyst/Mass: Simple cyst Bladder: Normal IMPRESSION: Simple cysts in the kidneys No hydronephrosis. Signed by: Talha Yang DO on 12/24/2019 9:16 AM
--- NOTE | 2019-12-24 12:42 | Progress Note ---
DATE: SUBJECTIVE: The patient is seen and evaluated. Available labs and notes reviewed. Discussed with the nurse. Discussed with Dr. Vargas. REVIEW OF SYSTEMS: The patient is now short of breath and currently on O2 nasal cannula and started to wheeze pulmonary clarke. OBJECTIVE: VITAL SIGNS: Had a maximum temperature 102.7 last night at 11:30 p.m. approximately, current temperature is 98, pulse is 109, respirations 24, and blood pressure 115/78. GENERAL: Seems to be alert and oriented x3. Responds appropriately, seems to be short of breath, on O2 nasal cannula, but patient denies shortness of breath. CV: S1 and S2. CHEST: Equal expansion with wheeze bilaterally. ABDOMEN: Soft, obese, and nontender. HEENT: Moist. No pallor. No JVD. EXTREMITIES: Right foot toes cold. Other than that, no significant edema and moves all. MEDICATIONS: Medication list reviewed from Infectious Disease point of view. The patient is on Rocephin. LABORATORY STUDIES: White count of 13.06, hemoglobin 10.7, platelets 132, which is dropping. Sodium 134, potassium 5.4, creatinine is 6.27. AST of 148, slightly improved. ALT 122, no significant change with ALP of 111. Creatine kinase is 691, improved from 1014 and his last ferritin level on 12/21 was 56227.56. His albumin is 2.5 with total protein of 6.9. MICROBIOLOGY: Blood culture 12/21/2019 is negative so far. Urine culture 12/21/2019 negative so far. IMAGING: Renal ultrasound showed simple cyst in the kidneys. No hydronephrosis. HIDA scan was negative for acute cholecystitis. Abdominal ultrasound, benign-appearing right renal cysts with no acute finding. ASSESSMENT AND PLAN: 1. Fever. 2. Overall, no significant change as far as workup, coronavirus PCR was negative on 12/22/2019 and 12/21/2019. We will follow up with CMV EBV hepatitis panel and toxo levels, his influenza type A and B antigen and HIV negative. The patient remains on Rocephin. Continue to monitor. 3. Rhabdomyolysis. 4. Renal insufficiency. 5. Elevated LFT. 6. Elevated ferritin level. 7. Leukocytosis, slightly. This patient started having poor appetite and has no diarrhea. Please refer to chart for further information. Discussed with Dr. Vargas in details. Further management of this patient is based on daily findings on laboratory and physical examination. Dictated by Beni Tompkins) LLOYD Hooks MD [facility] Garza/CONSTANTINE /[id number]
[2019-12-24 12:59] LABS: ANISOCYTOSIS SLIGHT; BAND NEUTROPHILS % (MANUAL) 5 %; LYMPHOCYTES % (MANUAL) 7 % (19-48); NEUTROPHILS % (MANUAL) 88 % (40-74); PLATELET ESTIMATE SLIGHTLY DECREASED; PLATELET MORPHOLOGY COMMENT NORMAL; RBC MORPHOLOGY COMMENT NORMAL
--- NOTE | 2019-12-24 13:15 | NUR ---
patient up in recliner, Not in any distress, he pulled the IV out, he is on 02 NC 2L, Daughter at bed side
--- NOTE | 2019-12-24 13:23 | NUR ---
NOTIFIED POTASSIUM LEVEL TO [employer], NO NEW ORDERS, PATIENT NOT IN ANY DISTRESS
[2019-12-24] MEDS ORDERED: FUROSEMIDE INJ 10 MG/ML 4 ML VIAL IV SCH (13:40)
--- NOTE | 2019-12-24 14:47 | NUR ---
Dr Hatch in patient room talking to his daughter, new orders recvd
--- NOTE | 2019-12-24 15:03 | NUR ---
Daughter at bed side she stated that ' she gonna move to patient to medical center and she said no need to start a new IV. She said she want to talk to attending Dr and trying to move the patient, explained her that Dr Hatch ordered IV Lasix for patient.
[2019-12-24 15:28] LABS: ANION GAP 18.6 mmol/L (8-16); CALCIUM 8.2 mg/dL (8.4-10.2); CREATININE, SERUM 6.97 mg/dL (0.72-1.25)
[2019-12-24 15:33] LABS: POTASSIUM 5.6 mmol/L (3.5-5.1)
--- NOTE | 2019-12-24 16:20 | NUR ---
attemped X2 to call Dr Hatch with the Lab results
[2019-12-24] MEDS: ENOXAPARIN SOD INJ 40 MG/0.4 ML SYR SC SCH (16:30)
[2019-12-24] MEDS ORDERED: ONDANSETRON HCL 4 MG ORAL DISINTEGRATING TAB PO PRN (17:00)
--- NOTE | 2019-12-24 18:32 | NUR ---
Notified Dr Hatch regarding BMP results . New Orders recvd , talked to daughter, Patient up in bed, not in any acute distress, on O2 NC 2L, Keep monitoring.
[2019-12-24] MEDS ORDERED: SOD POLYSTYRENE SULFONATE SUSP 15 GM/60 ML BTL PR ONE ×2 (19:30→20:45)
[2019-12-24] MEDS ORDERED: FUROSEMIDE INJ 10 MG/ML 10 ML VIAL IV ONE (19:30)
[2019-12-24] MEDS ORDERED: FUROSEMIDE INJ 10 MG/ML 4 ML VIAL IV ONE ×2 (19:45→20:45)
--- NOTE | 2019-12-24 21:35 | NUR ---
Patient became SOB with sat 83,84 maintained. Increased o2 to 4-5 L with no changes noted. Rapid called. Patient placed on bypap. o2 at 100%. Daughter at bedside. Dr Hopson called and left message. Called Clarence to inform of patient condition. Patient to ICU 195.
--- NOTE | 2019-12-24 21:47 | NUR ---
Received change of shift report from AM nurse. Walking rounds completed.
--- NOTE | 2019-12-24 21:50 | NUR ---
Daughter want to d/c patient and take him to [facility]. S/W Clarence. Also s/w Dr Hopson. Informed House sup. she s/w daughter. Dr Hopson s/w daughter over the telephone and agreed to meet with daughter in AM. Daughter will stay with patient abimbola Dawson. Patient given Lasix and kaxalate. Continue monitor.
--- NOTE | 2019-12-24 22:15 | NUR ---
Patient became very SOB with o2 sat 82-83%. Called for RT. Rapid called. Patient placed on a bypap and transferred to ICU room 195. Dr Hopson informed. Clarence informed. And daughter was at bedside and was brief on patient condition. Blood drawn. IV started to right AC 20G. Patient transferred to ICU.
[2019-12-24 22:45] LABS: BASOPHILS % 0.3 % (0.0-1.0); EOSINOPHILS # (AUTO) 0.1 (0.0-0.4); EOSINOPHILS % 0.4 % (0.0-6.0); HEMATOCRIT 35.4 % (38.2-49.6); HEMOGLOBIN 11.2 g/dL (14.0-18.0); LYMPHOCYTES # (AUTO) 1.3 (1.0-3.2); LYMPHOCYTES % 9.1 % (18.0-39.1); MEAN CORPUSCULAR HEMOGLOBIN 29.3 pg (28-32); MEAN CORPUSCULAR HGB CONC 31.6 g/dL (31-35); MEAN CORPUSCULAR VOLUME 92.7 fL (81-99); MONOCYTES # (AUTO) 0.3 (0.2-0.8); MONOCYTES % 2.3 % (4.4-11.3); NEUTROPHILS # (AUTO) 12.4 (2.1-6.9); NEUTROPHILS % 87.1 % (38.7-80.0); PLATELET COUNT 136 x10e3/uL (140-360); RED BLOOD COUNT 3.82 x10e6/uL (4.3-5.7); RED CELL DISTRIBUTION WIDTH 15.9 % (11.7-14.4)
[2019-12-24] MEDS ORDERED: METHYLPREDNISOLONE SOD SUCC 125 MG/2ML VIAL ONE (22:49)
[2019-12-24 22:59] LABS: ANION GAP 21.7 mmol/L (8-16); CALCIUM 8.2 mg/dL (8.4-10.2); CREATININE, SERUM 7.65 mg/dL (0.72-1.25); POTASSIUM 5.7 mmol/L (3.5-5.1)
[2019-12-24] MEDS ORDERED: BUMETANIDE 10 MG in SODIUM CHLORIDE 0.9% 100 ML 60 ML IV SCH (23:00)
[2019-12-24] MEDS ORDERED: METHYLPREDNISOLONE SOD SUCC 125 MG/2ML VIAL IV ONE (23:00)
[2019-12-24] MEDS ORDERED: BUMETANIDE INJ 0.25MG/ML 4ML VIAL ONE ×2 (23:13→23:14)
--- NOTE | 2019-12-24 23:16 | Progress Note ---
DATE: 12/24/2019 Nephrology Progress Note SUBJECTIVE: The patient was evaluated and seen, and spoke with the daughter around approximately 2 p.m. this afternoon. The patient was very short of breath when I evaluated him, but he was doing okay. No wheezing was appreciated on examination. He was alert, awake and oriented during my examination. I explained the overall findings in terms of renal function to the daughter at bedside. PHYSICAL EXAMINATION: VITAL SIGNS: During my evaluation, temperature was 99.1, pulse 97, respiratory rate 24, blood pressure is 106/58, pulse ox 97% on 2 L nasal cannula. GENERAL: Not in acute distress. Alert and oriented x3. He was cooperative on examination. PULMONARY: No crackles. Some mild expiratory wheezing. Good inspiratory effort. CARDIOVASCULAR: Positive S1 and S2. No murmurs, rubs, or gallops appreciated. ABDOMEN: Soft, nondistended, and nontender to palpation. Bowel sounds present. MUSCULOSKELETAL: Strength is 5/5 throughout. No evidence of any muscle deficits on examination. SKIN: Intact. Warm to touch. Good cap refill. PSYCHIATRIC: Normal affect and mood. EXTREMITIES: No edema. Good range of motion throughout. LABORATORY FINDINGS: Show white count 13, hemoglobin 10, hematocrit is 33, platelets of 132. Coagulation; PT 14, INR 1.1, PTT 36. Chemistry; sodium is 134, potassium 5.4, chloride 104, bicarb is 17, anion gap of 18, BUN is 81, creatinine 6.27, glucose is 131, calcium is 7.9, magnesium was 2.3, AST 140, ALT 122, alkaline phosphatase 111. CK was 691. Albumin was 2.5. Urine eosinophils were not seen. UA showed 2+ protein. Urine drug screen was negative. The cANCA, pANCA, double-stranded DNA, C3, C4, and SPEP, UPEP were all pending. SEROLOGY: Coronavirus was not detected. CMV, EBV, hepatitis panel, HIV was nonreactive. Flu was negative. Toxoplasmosis is pending. MICROBIOLOGY: Blood and urine cultures were no growth. IMAGING STUDIES: Renal ultrasound performed today shows a right kidney of 14 cm, but no hydronephrosis or obstruction. Left kidney was 10.9 cm. No hydronephrosis or obstruction. There is simple cyst in the kidneys. No hydronephrosis noted. IMPRESSION: 1. Fever of unknown etiology. 2. Acute kidney injury, now with worsening renal function. 3. Rhabdomyolysis. 4. Anion gap metabolic acidosis. PLAN: At this time, the labs from this morning showed a double in the creatinine level, which seems to be unusual, so a stat chemistry was ordered, which I discussed this with the nursing staff as well. Repeat stat chemistry did show worsening renal function. The patient was given Lasix initially 40 mg once, had some urine output and in additional Lasix 100 mg IV x1 was given again. We are going to insert a Hernandez catheter. IR has been consulted for a temporary tunneled catheter placement. I had a long discussion with the patient's daughter and the patient with the nurse present throughout the entire conversation. We talked about all lab findings in relation to the Nephrology related issues. I discussed with her that his renal function was down trending up until this morning and a repeat will be performed, which still shows elevation in the labs. The chemistries and electrolytes are stable except for the potassium is elevated, and which high dose Lasix was given as well as Kayexalate. I ordered 60 g of oral Kayexalate. His blood pressure is stable. I also discussed with her the risks and benefits in relation to hemodialysis and discussed how hemodialysis works. She discussed with me that she has had family members in the past on dialysis. She verbalized understanding. I also had a consult for Interventional Radiology to place a temporary dialysis catheter. We will consider possible Lasix drip if his blood pressure maintained stable, to remove more fluid. In relation to his other issues, I will defer to the other consultants or primary team. I did discuss with the patient and the daughter in relation to the renal function and the etiology that is going on. I also discussed with her that he does not have any other labs and I do not know this is all acute versus chronic in nature, and if it is possible she can get some records from the PCP, which she verbalized she will. MD RADHA Mariano/CONSTANTINE /[id number]
[2019-12-24] MEDS ORDERED: SODIUM CHLORIDE 0.9% 100 ML ONE (23:17)
--- NOTE | 2019-12-24 23:29 | Diagnostic Imaging Report ---
EXAMINATION: CHEST SINGLE (PORTABLE) COMPARISON: Chest x-ray 12/21/2019, CT chest 12/21/2019 INDICATION: Respiratory distress DISCUSSION: Frontal view of the chest obtained at 2243 hours. HEART AND MEDIASTINUM: Stable mild cardiomegaly LINES: None. LUNGS/PLEURA: Lung volumes are low. Stable of the pulmonary vasculature. The left diaphragm is poorly visualized. No new findings in the right lung. No large effusions. No pneumothorax. BONES AND SOFT TISSUES: Osseous structures are stable. The soft tissues are normal. IMPRESSION: Persistently low lung volumes with new opacification of the left diaphragm, either due to atelectasis and pleural effusion or pneumonia. Signed by: Dr. Allie Carr MD on 12/24/2019 11:25 PM
[2019-12-25] VITALS (23 sets, daily range): BP systolic 94–122; BP diastolic 7–74
--- NOTE | 2019-12-25 | NUR ---
Received patient on BIPAP, lethargic, Hernandez catheter inserted, urine output of 400mls. Update given to both Dr Hatch and Dr Hopson
[2019-12-25] MEDS ORDERED: DEXTROSE 50% SYRINGE 50 ML IV STA (00:32)
[2019-12-25] MEDS ORDERED: SODIUM BICARBONATE 8.4% INJ 50 ML SYR IV STA (00:32)
[2019-12-25] MEDS ORDERED: INSULIN REGULAR, HUMAN 100 UNIT/1 ML 3ML VIAL SQ ONE (00:45)
[2019-12-25] MEDS ORDERED: CALCIUM GLUCONATE 10% INJ 9.3 MEQ in SODIUM CHLORIDE 0.9% 100 ML 100 ML IV ONE (00:45)
[2019-12-25] MEDS ORDERED: CALCIUM GLUCONATE 10% INJ 0.465 MEQ/ML VIAL ONE ×2 (01:05→01:26)
[2019-12-25] MEDS ORDERED: SODIUM CHLORIDE 0.9% 100 ML ONE ×2 (01:08→03:45)
[2019-12-25] MEDS ORDERED: BUMETANIDE INJ 0.25 MG/ML 10 ML VIAL ONE ×2 (03:43→03:44)
--- NOTE | 2019-12-25 04:00 | NUR ---
Patient put on nasal cannula saturating well above 95%
[2019-12-25] MEDS: CEFTRIAXONE SOD 1 GM/NS 50 ML 50 ML IV SCH ×2 (04:52→18:28)
[2019-12-25 05:07] LABS: BASOPHILS % 0.2 % (0.0-1.0); HEMOGLOBIN 10.4 g/dL (14.0-18.0); LYMPHOCYTES # (AUTO) 1.2 (1.0-3.2); LYMPHOCYTES % 9.5 % (18.0-39.1); MEAN CORPUSCULAR HEMOGLOBIN 28.7 pg (28-32); MEAN CORPUSCULAR HGB CONC 31.5 g/dL (31-35); MEAN CORPUSCULAR VOLUME 90.9 fL (81-99); MONOCYTES # (AUTO) 0.1 (0.2-0.8); MONOCYTES % 1.1 % (4.4-11.3); NEUTROPHILS # (AUTO) 10.8 (2.1-6.9); NEUTROPHILS % 88.3 % (38.7-80.0); PLATELET COUNT 115 x10e3/uL (140-360); RED BLOOD COUNT 3.63 x10e6/uL (4.3-5.7); RED CELL DISTRIBUTION WIDTH 15.9 % (11.7-14.4)
[2019-12-25 05:35] LABS: ALANINE AMINOTRANSFERASE 109 IU/L (0-55); ALBUMIN 2.3 g/dL (3.5-5.0); ALBUMIN/GLOBULIN RATIO 0.5 (0.8-2.0); ALKALINE PHOSPHATASE 118 IU/L (40-150); ANION GAP 18.2 mmol/L (8-16); BLOOD UREA NITROGEN 99 mg/dL (7-26); BUN/CREATININE RATIO 12 (6-25); CALCIUM 8.2 mg/dL (8.4-10.2); CARBON DIOXIDE 17 mmol/L (22-29); CHLORIDE 105 mmol/L (98-107); CREATINE KINASE 482 IU/L (30-200); CREATININE, SERUM 8.24 mg/dL (0.72-1.25); EST GLOMERULAR FILTRATION RATE 7 ML/MIN (60-); GLUCOSE 187 mg/dL (74-118); POTASSIUM 5.2 mmol/L (3.5-5.1); SODIUM 135 mmol/L (136-145)
[2019-12-25 05:56] LABS: FERRITIN > 2000.00 ng/mL (21.81-274.66)
[2019-12-25] MEDS: SODIUM CHLORIDE 0.9% 1000ML 1,000 ML IV SCH (06:30)
--- NOTE | 2019-12-25 08:30 | NUR ---
Last night, patient became very short of breath with O2 sat 82-83%. Rapid was called. Patient was placed on BiPap and was transferred to ICU. Since patient had change in medical condition, physical therapist will hold treatment until patient stable and MD places another order. Thank you. Addendum: 12/25/19 at 0832 by Ana Flores PT Amended: Links added.
[2019-12-25] MEDS: ASPIRIN 81 MG CHEW TAB PO SCH (08:58)
[2019-12-25] MEDS: FAMOTIDINE 20 MG/2 ML VIAL IV SCH ×2 (08:58→18:28)
[2019-12-25] MEDS: FENOFIBRATE 145 MG TAB PO SCH (08:58)
--- NOTE | 2019-12-25 10:27 | Progress Note ---
DATE: SUBJECTIVE: The patient had some desaturations last night and was transferred down to the Intensive Care Unit. He is now on nasal cannula. He complains of weakness in his legs and fatigue. He has some loose bowels, but is not having nausea or vomiting anymore. PHYSICAL EXAMINATION: VITAL SIGNS: The blood pressure is 122/70 and saturation is 96%. Pulse is 96. HEENT: Shows no facial swelling or erythema. CARDIAC: Reveals regular rate and rhythm with normal S1 and S2. LUNGS: Auscultation of lungs reveals crackles at the bases. There is no wheezing. ABDOMEN: Soft and nontender. There is no rebound or guarding. EXTREMITIES: Shows no leg edema or calf tenderness. There is no cyanosis or clubbing. SKIN: Shows no rashes. NEUROLOGICAL: Shows no focal abnormalities. LABORATORY DATA: BUN to creatinine ratio is 99 to 8.24. The carbon dioxide is 17 and the potassium is 5.2. The AST is 119 and the ALT is 109. Hemoglobin is 10.4. White blood cell count is 12.2. IMPRESSION: 1. Acute renal failure. 2. Basilar atelectasis on chest x-ray. 3. Gastroenteritis. 4. Elevated AST and ALT. 5. Anemia. 6. A 6 mm left lower lobe nodule. PLAN: 1. The patient's daughter and patient are requesting transfer. If possible, we will try to arrange transfer to [facility] or [facility]. 2. Continue oxygen. 3. The patient will need renal biopsy and possible dialysis. 4. Continue to monitor electrolytes. 5. Continue to monitor liver function. 6. Case discussed with the patient, daughter, Internal Medicine, and administration. MD MAYE Eagle/CONSTANTINE /[id number]
[2019-12-25] MEDS: BUMETANIDE 10 MG in SODIUM CHLORIDE 0.9% 100 ML 60 ML IV SCH ×3 (10:29→22:15)
[2019-12-25 11:34] LABS: BAND NEUTROPHILS % (MANUAL) 1 %; LYMPHOCYTES % (MANUAL) 3 % (19-48); MONOCYTES % (MANUAL) 1 % (3.4-9.0); NEUTROPHILS % (MANUAL) 95 % (40-74)
[2019-12-25 11:35] LABS: ANISOCYTOSIS SLIGHT; PLATELET ESTIMATE SLIGHTLY DECREASED; PLATELET MORPHOLOGY COMMENT NORMAL; RBC MORPHOLOGY COMMENT NORMAL
--- NOTE | 2019-12-25 11:56 | NUR ---
progress note [id number]
--- NOTE | 2019-12-25 12:30 | NUR ---
PT'S DAUGHTER REQUESTING TRANSFER TO [facility] ON [address] NATACHA BHATIA [phone] CHOICE LETTER SIGNED BY PT'S DTR MOT INITIATED AND PLACED ON CHART CM CALLED TRANSFER CENTER AT [facility] [phone] FAX: [phone] CLINICALS FAXED TO ABOVE NUMBER CONFIRMATION REC'D AWAIT ICU BED DR BECKER AVAILABLE BY CELL PHONE FOR PEER TO PEER
--- NOTE | 2019-12-25 12:34 | Progress Note ---
DATE: 12/25/2019 Nephrology Progress Note SUBJECTIVE: The patient overnight had a rapid response. He was very short of breath. He was started on Bumex drip 2 mg/hour with significant amount of urine output. He is breathing much better. He is alert and awake. He is oriented during my examination today. Daughter is insistent on being transferred to [facility] and the [facility]. I have discussed with her about the dialysis that needed for today. She seems to be not interested at this time. I discussed with her that the risk is high if we do not do dialysis any time soon, since we have been having issues with the potassium. Primary attending, Dr. Hopson also spoke with her as well, as well as Dr. Patterson, Pulmonary. She is insistent on being transferred to another facility. I did consult with IR to put a tunneled catheter once she makes her decision. Also, talked to the nursing staff. If she does agree, we will have the dialysis nurse dialyze him here for at least 2 to 2-1/2 hours today. PHYSICAL EXAMINATION: VITAL SIGNS: Temperature is 98.6, pulse 90, respiratory rate 17, blood pressure 108/62, and pulse ox 94% on 3 L nasal cannula. GENERAL: Not in acute distress. Alert and oriented x3. Cooperative on examination. PULMONARY: Clear to auscultation bilaterally. He has some fine crackles in the lower bases, but otherwise he has good inspiratory effort. CARDIOVASCULAR: Positive S1 and S2. No murmurs, rubs, or gallops appreciated. ABDOMEN: Soft, nondistended, and nontender to palpation. Bowel sounds present. MUSCULOSKELETAL: Strength is 5/5 throughout. No evidence of any muscle deficits on examination. No weakness appreciated. NEUROLOGIC: Cranial nerves 2 through 12 grossly intact. No evidence of any neurological deficits on exam. SKIN: Intact. Warm to touch. Good cap refill. PSYCHIATRIC: Normal affect and mood. EXTREMITIES: Good range of motion throughout. He does have trace to 1+ pedal edema, bilateral lower extremities. LABORATORY DATA: Show white count 12.2, hemoglobin 10, hematocrit is 33, and platelets of 115. Coagulation; PT 14.9, INR 1.1, and PTT 36. Chemistry; sodium 135, potassium is 5.2, chloride 105, bicarbonate 17, anion gap of 18, BUN is 99, creatinine is 8.2, his GFR is 7, glucose 187, and calcium is 8.2. Ferritin greater than 2000. AST 119, ALT 109, and alkaline phosphatase 118. Ammonia level is 53. BNP 151. Albumin 2.3. P-ANCA, C-ANCA, UPEP, SPEP, double-stranded DNA, C3, C4 all pending. There are several other serologies still pending. MICROBIOLOGY: All cultures were negative. IMAGING STUDIES: Nothing new today. IMPRESSION: 1. Fever, unknown etiology. 2. Acute kidney injury with worsening renal function. 3. Rhabdomyolysis. 4. Anion gap metabolic acidosis. 5. Hyperkalemia. PLAN: At this time from a renal standpoint, I have had a long discussion with the patient's daughter at bedside, in which the patient does now need hemodialysis. I have ordered IR to place a tunneled HD catheter and initiation of HD later today. He will continue with Bumex drip at 2 mg/hour until the dialysis catheter has been placed. At this time, the patient's daughter is not interested in doing any procedures here at this hospital, instead want to be transferred to [facility] in [facility]. I have discussed with her the urgency of having HD performed while he is here, as his creatinine is continuing to worsen as well as his hyperkalemia is becoming an issue. Despite discussing all of these, she does not seem to be interested at this time with any kind of dialysis or any interventions. The nurse, who is taking care of the patient was present throughout this entire conversation. I have also discussed this with the primary attending, Dr. Hopson as well as the interior design consultant, Dr. Patterson. At this time, we will continue with the Bumex drip until she makes her final decision. I have discussed with her the risks on not having any hemodialysis, as his BUN will continue to rise. He will at some point stop making urine and he will start to have refractory hyperkalemia, but despite discussing all that with her, she seems not to be interested at this time. I have talked with the patient as well. He kind of waxes and wanes in terms of his memory, so the daughter, who is at bedside is making some medical decisions on his behalf. I will order repeat chemistry later this afternoon and have the nursing staff call me to see if his potassium is any better. MD RADHA Mariano/CONSTANTINE /[id number]
--- NOTE | 2019-12-25 16:24 | NUR ---
CM SPOKE WITH TRANSFER CENTER AT [facility] THEY ARE DENYING THE TRANSFER ON THIS PT; NO A HIGHER LEVEL OF CARE DR BECKER AND PT AND HIS DTR NOTIFIED OF DENIAL PT'S DAUGHTER HAS MENTIONED THROUGHOUT THE DAY THAT IS PT IS NOT ACCEPTED SHE WILL TAKE HIM AMA; STATING "SOMEHOW, I WILL GET HIM TO [facility]"
[2019-12-25] MEDS ORDERED: HEPARIN SOD (PORCINE) 1000 UNIT/ML SDV IV ONE (17:28)
[2019-12-25 18:29] LABS: ANION GAP 20.6 mmol/L (8-16); CALCIUM 7.9 mg/dL (8.4-10.2); CREATININE, SERUM 8.33 mg/dL (0.72-1.25); POTASSIUM 4.6 mmol/L (3.5-5.1)
[2019-12-25] MEDS: ENOXAPARIN SOD INJ 40 MG/0.4 ML SYR SC SCH (18:29)
[2019-12-25] MEDS ORDERED: SODIUM CHLORIDE 0.9% 1000ML 2,000 ML ONE (19:18)
[2019-12-25] MEDS ORDERED: MANNITOL 25% 12.5GM/50 ML VIAL IV ONE (19:30)
[2019-12-25] MEDS ORDERED: MANNITOL 25% 12.5GM/50ML 100 ML IV ONE (19:30)
[2019-12-25] MEDS ORDERED: MANNITOL 25% 12.5GM/50ML 50 ML ONE (19:57)
--- NOTE | 2019-12-25 20:00 | NUR ---
Patient received stable, on dialysis, no complaints raised
[2019-12-25] MEDS ORDERED: HEPARIN SOD (PORCINE) 1000 UNIT/ML SDV ONE (21:19)
[2019-12-26] VITALS (24 sets, daily range): BP systolic 100–130; BP diastolic 59–77
[2019-12-26] MEDS: BUMETANIDE 10 MG in SODIUM CHLORIDE 0.9% 100 ML 60 ML IV SCH ×4 (02:54→20:28)
--- NOTE | 2019-12-26 04:30 | NUR ---
Complaining of tenderness, and muscle cramping, pain medication, reassured. Full bed bath given dirty linens changed
[2019-12-26] MEDS: CEFTRIAXONE SOD 1 GM/NS 50 ML 50 ML IV SCH ×2 (05:30→17:26)
[2019-12-26 05:41] LABS: BASOPHILS # (AUTO) 0.1 (0.0-0.1); BASOPHILS % 0.4 % (0.0-1.0); EOSINOPHILS % 0.1 % (0.0-6.0); HEMATOCRIT 33.9 % (38.2-49.6); HEMOGLOBIN 11.2 g/dL (14.0-18.0); LYMPHOCYTES # (AUTO) 1.1 (1.0-3.2); LYMPHOCYTES % 7.7 % (18.0-39.1); MEAN CORPUSCULAR HEMOGLOBIN 28.8 pg (28-32); MEAN CORPUSCULAR VOLUME 87.1 fL (81-99); MONOCYTES # (AUTO) 0.4 (0.2-0.8); MONOCYTES % 2.6 % (4.4-11.3); NEUTROPHILS # (AUTO) 12.4 (2.1-6.9); NEUTROPHILS % 88.3 % (38.7-80.0); PLATELET COUNT 115 x10e3/uL (140-360); RED BLOOD COUNT 3.89 x10e6/uL (4.3-5.7); RED CELL DISTRIBUTION WIDTH 15.2 % (11.7-14.4)
[2019-12-26 05:59] LABS: ALBUMIN 2.5 g/dL (3.5-5.0); ALBUMIN/GLOBULIN RATIO 0.5 (0.8-2.0); CALCIUM 7.9 mg/dL (8.4-10.2); CREATININE, SERUM 6.96 mg/dL (0.72-1.25); MAGNESIUM 2.2 MG/DL (1.3-2.1); PHOSPHORUS 5.8 MG/DL (2.3-4.7)
[2019-12-26] MEDS: ACETAMINOPHEN 325 MG TAB PO PRN (06:00)
--- NOTE | 2019-12-26 08:33 | Progress Note ---
DATE: SUBJECTIVE: Mr. Luz remains in intensive care unit. The patient is comfortable. White count is 12.23. He is currently on Rocephin. OBJECTIVE: GENERAL: He is currently alert, oriented, does not seem in acute distress. VITAL SIGNS: T-max 101.6. HEENT: He is not icteric. NECK: Supple. CHEST: Clear bilateral. COR: S1 and S2. No S3, S4, or murmur. ABDOMEN: Soft. IMPRESSION: Acute kidney injury, atelectasis, bilateral lower lobe pneumonia, gastroenteritis, elevated AST, elevated ALT. Fever on admission, resolved. Fever, workup remains negative. CT of the pelvis did not reveal a pathogen. Blood cultures are negative. Elevated liver enzyme. We will check elevated protein. We will follow. MD ESTELLA Garza/CONSTANTINE /[id number]
[2019-12-26] MEDS: FAMOTIDINE 20 MG/2 ML VIAL IV SCH ×2 (08:35→17:26)
[2019-12-26] MEDS: FENOFIBRATE 145 MG TAB PO SCH (08:35)
[2019-12-26] MEDS: ASPIRIN 81 MG CHEW TAB PO SCH (08:35)
[2019-12-26] MEDS ORDERED: BACLOFEN 10 MG TAB PO ONE (08:55)
--- NOTE | 2019-12-26 10:02 | Diagnostic Imaging Report ---
PROCEDURE: Non-tunneled central venous catheter placement Procedural Personnel Attending physician(s): Valentine Corbett MD Fellow physician(s): None Resident physician(s): None Advanced practice provider(s): None Pre-procedure diagnosis: CYNDY Post-procedure diagnosis: Same Indication: Performance of hemodialysis Additional clinical history: None Complications: No immediate complications. IMPRESSION: Insertion of right-sided non-tunneled triple-lumen temporary dialysis catheter, with tip in the expected location of the cavoatrial junction. Plan: The catheter may be used immediately. PROCEDURE SUMMARY: - Venous access with ultrasound guidance - Non-tunneled central venous catheter insertion with fluoroscopic guidance - Additional procedure(s): None PROCEDURE DETAILS: Pre-procedure Consent: Informed consent for the procedure including risks, benefits and alternatives was obtained and time-out was performed prior to the procedure. Preparation (MIPS): The site was prepared and draped using all elements of maximal sterile barrier technique including sterile gloves, sterile gown, cap, mask, large sterile sheet, sterile ultrasound probe cover, hand hygiene and cutaneous antisepsis with 2% chlorhexidine. Medical reason for site preparation exception (MIPS): Not applicable Anesthesia/sedation Level of anesthesia/sedation: No sedation Anesthesia/sedation administered by: Independent trained observer under attending supervision with continuous monitoring of the patient?s level of consciousness and physiologic status Total intra-service sedation time (minutes): NA Access Local anesthesia was administered. The vessel was sonographically evaluated and determined to be patent. Real time ultrasound was used to visualize needle entry into the vessel and a permanent image was stored. Vein accessed: Internal jugular vein Access technique: Micropuncture set with 21 gauge needle Catheter placement The access site was dilated and the catheter was placed into the vein over a wire under fluoroscopic guidance. The catheter tip location was fluoroscopically verified and a permanent image was stored.. A sterile dressing was applied. Catheter placed: Bard Trialysis Catheter size ([place] Islander): 13 Catheter length (cm): 15 Catheter flush: Heparin (1000 units/mL) Catheter securement technique: Non-absorbable suture Contrast Contrast agent: None Radiation Dose Fluoroscopy time (minutes): 0.1 Reference air kerma (mGy): 2.3 Additional Details Additional description of procedure: None Equipment details: None Specimens removed: None Estimated blood loss (mL): Less than 10 Standardized report: [email or web address] Attestation Signer name: Valentine Corbett MD I attest that I was present for the entire procedure. I reviewed the stored images and agree with the report as written. Signed by: Valentine Corbett MD on 12/26/2019 9:59 AM
[2019-12-26] MEDS ORDERED: HYDROCODONE/APAP 5MG-325MG TAB PO PRN (10:15)
[2019-12-26] MEDS ORDERED: HEPARIN SOD (PORCINE) 5,000 UNIT/ML VIAL IV PRN (11:00)
[2019-12-26] MEDS ORDERED: SODIUM CHLORIDE 0.9% 1000ML 2,000 ML IV PRN (11:00)
[2019-12-26] MEDS ORDERED: MANNITOL 25% 12.5GM/50 ML VIAL IV PRN (11:00)
--- NOTE | 2019-12-26 11:02 | NUR ---
pt resting comfortably. family member left. pt starting dialysis
[2019-12-26 11:38] LABS: EOSINOPHILS % (MANUAL) 1 % (0-7); LYMPHOCYTES % (MANUAL) 9 % (19-48); MONOCYTES % (MANUAL) 4 % (3.4-9.0); NEUTROPHILS % (MANUAL) 86 % (40-74); PLATELET ESTIMATE ADEQUATE; PLATELET MORPHOLOGY COMMENT NORMAL; RBC MORPHOLOGY COMMENT NORMAL
--- NOTE | 2019-12-26 12:45 | Progress Note ---
DATE: 12/26/2019 Nephrology Progress Note SUBJECTIVE: The patient is doing well today with no complaints. He was alert, awake, and oriented on examination. Daughter was at bedside. He had his first HD treatment yesterday, which he tolerated very well. He is in the process of getting HD treatment #2 today. The daughter initially yesterday refused to have dialysis, but later in the day, she did finally agree. He is making good urine output as well. PHYSICAL EXAMINATION: VITAL SIGNS: Temperature is 98.4, pulse 95, respiratory rate is 25, blood pressure is 111/77, and pulse ox 95% on 2 L nasal cannula. GENERAL: Not in acute distress. Alert and oriented x3. Cooperative on examination. HEENT: Head; normocephalic, atraumatic. Eyes; pupils are equal, round, and reactive to light bilaterally. Extraocular movements intact bilaterally. Throat; no evidence of erythema or exudates in the posterior pharynx. Has poor dentition. NECK: Supple. Good range of motion. PULMONARY: Clear to auscultation bilaterally. No wheezing, no rales, no rhonchi, no crackles appreciated. CARDIOVASCULAR: Positive S1 and S2. No murmurs, rubs, or gallops appreciated. ABDOMEN: Soft, nondistended, and nontender to palpation. Bowel sounds present. MUSCULOSKELETAL: Strength is 5/5 throughout. No evidence of any muscle deficits on examination. No weakness appreciated. NEUROLOGIC: Cranial nerves 2 through 12 grossly intact. No evidence of any neurological deficits on exam. SKIN: Intact. Warm to touch. Good cap refill. PSYCHIATRIC: Normal affect and mood. EXTREMITIES: No edema. Good range of motion throughout. LABORATORY DATA: Show white count 13.9, hemoglobin 11.2, hematocrit is 34, and platelets of 115. Chemistry; sodium 139, potassium 4, chloride 99, bicarb 22, anion gap of 22, BUN is 91, creatinine is 6.96, and glucose is 156. Urine eosinophils negative. P-ANCA, C-ANCA are all pending. UPEP is pending. Double-stranded DNA was 4. C3 and C4 were normal. Hepatitis panel negative. HIV negative. IMPRESSION: 1. Acute kidney injury presumed to be underlying acute tubular necrosis. 2. Rhabdomyolysis. 3. Anion gap metabolic acidosis. 4. Hyperkalemia-resolved. PLAN: At this time, the patient has good urine output. He did receive his HD treatment #1 yesterday and is scheduled for HD treatment #2. Orders have been provided to the HD unit and nurse. Plan is for 3K bath, 2.5 calcium, UF of 2 L, duration 2.5 hours, blood flow rate 250 mL/minute, dialysis flow rate 500 mL/minute. We will do HD tomorrow as well. Get a.m. labs. Continue with Bumex drip. Continue same plan of care and monitor closely. I discussed plan of care with the patient's daughter and the patient at bedside with the nurse present and discussed the HD treatment #2 is today. I answered all their questions. I discussed with them that the patient will likely need to have renal biopsy at some point either at the end of this week or early next week. Plan of care discussed with the patient and the patient's daughter, and they verbalized understanding. MD RADHA Mariano/CONSTANTINE /[id number]
--- NOTE | 2019-12-26 13:20 | Progress Note ---
DATE: SUBJECTIVE: Mr. Luz remains in intensive care unit, comfortable. Blood cultures are negative. White count is 13.9. Hemoglobin 11. PHYSICAL EXAMINATION: GENERAL: Currently alert and oriented. VITAL SIGNS: Stable, currently afebrile. No fever since 12/24. HEENT: He is not icteric. NECK: Supple. CHEST: Few crackles. HEART: S1 and S2. No S3, S4, or murmur. ABDOMEN: Soft. Bowel sounds present. No tenderness. EXTREMITIES: No edema. SKIN: No rash. He remains on Rocephin. IMPRESSION: 1. Acute kidney injury. 2. Pneumonia. 3. Community-acquired pneumonia. 4. Shortness of breath. 5. So far workup is negative. We are still waiting on serology, but influenza A/B was negative. HIV was negative. Blood cultures are negative. COVID-19 is negative. Recheck chest x-ray and we will follow. MD ESTELLA Garza/CONSTANTINE /[id number]
--- NOTE | 2019-12-26 15:40 | Progress Note ---
DATE: SUBJECTIVE: The patient is receiving dialysis again today. He has some urine output with the Bumex as well. He has decreased appetite. There are no fevers. PHYSICAL EXAMINATION: VITAL SIGNS: The patient is afebrile. The blood pressure is 117/74 and saturation is 99% on 2 L. The pulse is 101. HEENT: Shows no facial swelling or erythema. CARDIAC: Reveals regular rate and rhythm with normal S1 and S2. LUNGS: Auscultation of lungs reveals decreased breath sounds at the bases. There is no wheezing. ABDOMEN: Soft and nontender. There is no rebound or guarding. There is 1+ edema. IMPRESSION: 1. Acute renal failure. 2. Thrombocytopenia. 3. Bibasilar atelectasis on chest x-ray. 4. Anemia. 5. A 6 mm nodule in left lower lobe. PLAN: 1. Await serologies. 2. Possible kidney biopsy. 3. Continue dialysis as needed. 4. Continue to monitor electrolytes and liver function. Kenyon Patterson MD [facility]/MODL /[id number]
[2019-12-26] MEDS: ENOXAPARIN SOD INJ 40 MG/0.4 ML SYR SC SCH (17:26)
--- NOTE | 2019-12-26 17:59 | NUR ---
pt vs remain stable throughout shift. 2L removed with dialysis. pt RR has maintained close to 30 and now 34-38. orders for abg pending.
[2019-12-26 18:04] LABS: CREATININE,URINE RANDOM 78.14 mg/dL (63-166); TOTAL PROTEIN, URINE 70.6 mg/dL (1-14)
--- NOTE | 2019-12-26 19:14 | Diagnostic Imaging Report ---
EXAMINATION: CHEST SINGLE (PORTABLE) INDICATION: ^sob ^[id number] ^[id number] COMPARISON: December 24, 2019. FINDINGS: Lines: Right sided central venous catheter with distal tip not well visualized, however confidently on the SVC. LUNGS: Lungs are not well inflated. Mild prominence of the pulmonary vasculature bilaterally. Right midlung platelike atelectasis. PLEURA: Small left pleural effusion. Probable trace right pleural effusion. No pneumothorax. HEART AND MEDIASTINUM: Cardiac size is mildly enlarged. BONES AND SOFT TISSUES: No acute osseous lesion. Soft tissues are unremarkable. UPPER ABDOMEN: No free air under the diaphragm. IMPRESSION: Mild bilateral pulmonary venous congestion. Small left pleural effusion. Right midlung platelike atelectasis. Signed by: Dr. Vielka Tovar M.D. on 12/26/2019 7:10 PM
--- NOTE | 2019-12-26 20:00 | NUR ---
Spoke to Dr. Carmella Patterson in regards of pt's CXR results. Ordered to stop rocephin and start on cefepime and vanc. Ordered to repeat blood cultures. Will notifiy MD of ABG results when available.
[2019-12-26] MEDS ORDERED: VANCOMYCIN 1GM/NS 250 ML 250 ML IV ONE (20:30)
[2019-12-26] MEDS: CEFEPIME 1GM/NS 0.9% 50 ML 50 ML IV SCH (21:12)
--- NOTE | 2019-12-26 21:32 | NUR ---
ABG results read to Dr. Carmella Patterson, no new orders noted. Received order for IV tylenol for elevated temp
[2019-12-26] MEDS: ACETAMINOPHEN 1000 MG/100 ML IV PRN (21:48)
[2019-12-27] VITALS (25 sets, daily range): BP systolic 89–129; BP diastolic 56–81
[2019-12-27] MEDS: BUMETANIDE 10 MG in SODIUM CHLORIDE 0.9% 100 ML 60 ML IV SCH ×5 (01:54→21:30)
[2019-12-27 06:14] LABS: BASOPHILS # (AUTO) 0.1 (0.0-0.1); BASOPHILS % 0.6 % (0.0-1.0); EOSINOPHILS # (AUTO) 0.1 (0.0-0.4); EOSINOPHILS % 0.5 % (0.0-6.0); HEMATOCRIT 35.5 % (38.2-49.6); HEMOGLOBIN 11.8 g/dL (14.0-18.0); LYMPHOCYTES # (AUTO) 2.5 (1.0-3.2); LYMPHOCYTES % 22.4 % (18.0-39.1); MEAN CORPUSCULAR HEMOGLOBIN 29.1 pg (28-32); MEAN CORPUSCULAR HGB CONC 33.2 g/dL (31-35); MEAN CORPUSCULAR VOLUME 87.7 fL (81-99); MONOCYTES # (AUTO) 0.4 (0.2-0.8); MONOCYTES % 3.7 % (4.4-11.3); NEUTROPHILS # (AUTO) 7.9 (2.1-6.9); NEUTROPHILS % 71.4 % (38.7-80.0); PLATELET COUNT 125 x10e3/uL (140-360); RED BLOOD COUNT 4.05 x10e6/uL (4.3-5.7); RED CELL DISTRIBUTION WIDTH 14.6 % (11.7-14.4)
[2019-12-27] MEDS: ACETAMINOPHEN 1000 MG/100 ML IV PRN ×2 (06:28→17:00)
[2019-12-27 06:30] LABS: ANION GAP 20.9 mmol/L (8-16); CALCIUM 7.9 mg/dL (8.4-10.2); CREATININE, SERUM 6.95 mg/dL (0.72-1.25); POTASSIUM 3.9 mmol/L (3.5-5.1)
[2019-12-27 08:15] LABS: ANISOCYTOSIS SLIGHT; BAND NEUTROPHILS % (MANUAL) 1 %; EOSINOPHILS % (MANUAL) 1 % (0-7); LYMPHOCYTES % (MANUAL) 18 % (19-48); MONOCYTES % (MANUAL) 1 % (3.4-9.0); NEUTROPHILS % (MANUAL) 79 % (40-74); PLATELET ESTIMATE SLIGHTLY DECREASED; RBC MORPHOLOGY COMMENT NORMAL
[2019-12-27 08:16] LABS: PLATELET MORPHOLOGY COMMENT NORMAL
[2019-12-27] MEDS: CEFEPIME 1GM/NS 0.9% 50 ML 50 ML IV SCH (09:42)
[2019-12-27] MEDS: FAMOTIDINE 20 MG/2 ML VIAL IV SCH ×2 (09:42→17:01)
[2019-12-27] MEDS: ASPIRIN 81 MG CHEW TAB PO SCH (09:43)
[2019-12-27] MEDS: FENOFIBRATE 145 MG TAB PO SCH (09:43)
--- NOTE | 2019-12-27 09:56 | NUR ---
Report to JALYN Lawson.
[2019-12-27] MEDS ORDERED: HEPARIN SOD (PORCINE) 1000 UNIT/ML SDV ONE (10:54)
[2019-12-27] MEDS: ENOXAPARIN SOD INJ 40 MG/0.4 ML SYR SC SCH (17:01)
--- NOTE | 2019-12-27 17:24 | NUR ---
Nutrition Intervention Note RD Recommendation(s) for Physician: -Rec renal diet, diet texture per SEARCH DEVELOPER -Rec Nepro TID to promote protein-calorie intake -Rec appetite stimulant to help with PO intake -Encourage PO intake and hydration -If PO continues to be poor, rec placing feeding tube and initiating continuous TF with Nepro @20ml/hr, advance as tolerated to goal @65ml/hr, providing 2808kcal, 126g protein, 1134ml water. Plan of Care: RD following, monitoring for tolerance and adequacy, ONS rec Nutrition reason for involvement: LOS 6 RD Assessment 12/26 69yo M, who was admitted for CYNDY and PNA. Pt is receiving HD treatment. Phos and K has trend down to normal. Per RN, pt with poor appetite and little to none PO intake. Pt has been quite fatigued and had fevers overnight. SEARCH DEVELOPER following for diet upgrade. Will continue to monitor and follow. Principal Problems/Diagnoses: 1. Acute kidney injury on HD. 2. Pneumonia. PMH: DVT, non compliance with medications, anemia, gastroenteritis, HTN I/O: +750ml/ -1750ml GI: abdomen soft, non-tender, liquid brown stool 12/26 Skin: intact Labs: (12/26) BUN 100, Creatinine 6.95 H, Ca 7.9 L, Meds: bumetanide, cefepime, pepcid, lovenox, heparin Ht: 71in Wt: 268lb BMI: 37.4kg/m2 IBW: 172lb +/- 10% Adjusted BW: 210lb Malnutrition Evaluation (12/26) Unable to assess at this time. Nutrition Prescription (Diet Order): Renal w/ Nepro Estimated Nutritional Needs: (CYNDY, GFR<15 on HD, non-ventilated, obese) Calories: 2850 - 3325kcal(30-35kcal/kg/d) Weight used: ABW Protein: 76 - 114g(0.8-1.2/kg/d) Weight used: ABW Diet Adequacy: Not meeting calorie needs, Not meeting protein needs Tolerance: Tolerance pending Diet Education Needs Assessment: Diet education not indicated. Nutrition Care Level: moderate Nutrition Diagnosis: Inadequate oral intake related to current medical status as evidenced by poor PO intake x 4 days. Goal: Patient will meet 75-100% of estimated needs by follow up Progress: Not Progressing Interventions: Modified diet, Commercial beverage, Prescription medications, Recommended Modifications, Collaboration with other providers Monitoring/Evaluation: Total energy intake, Total protein intake, Modified diet, Liquid supplement, Weight change Signed: Monse Blair MS, RD, LD
--- NOTE | 2019-12-27 18:41 | NUR ---
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
[2019-12-27] MEDS: FLUCONAZOLE 200 MG/100 ML 100 ML IV SCH (19:52)
--- NOTE | 2019-12-27 20:06 | Progress Note ---
DATE: SUBJECTIVE: Mr. Luz remains in intensive care unit, getting dialysis. PHYSICAL EXAMINATION: GENERAL: He is currently alert and oriented. Does not seem to be in acute distress. VITAL SIGNS: He had a temperature of 103.8. HEENT: He is not icteric. NECK: Supple. CHEST: Few crackles bilateral. COR: S1 and S2. No S3, S4, or murmurs. ABDOMEN: Soft. LABORATORY DATA: White count 11.11, hemoglobin 11, hematocrit 35. HIV is negative. Influenza negative. CMV and EBV hepatitis still pending. Hepatitis A, B, and C was negative. C-ANCA and P-ANCA still pending. Sodium 139, potassium 3.9, creatinine of 6.95. IMPRESSION: Fever, etiology unclear. The patient is currently on cefepime, was on vancomycin, doubt infection. We will discontinue antibiotic. We will reassess in the morning. MD ESTELLA Garza/MODL /[id number]
[2019-12-27] MEDS: AMPICILLIN SOD 2 GM/NS 100ML 100 ML IV SCH (22:00)
[2019-12-28] VITALS (16 sets, daily range): BP systolic 87–133; BP diastolic 57–74
--- NOTE | 2019-12-28 00:31 | Progress Note ---
DATE: 12/27/2019 Nephrology Progress Note SUBJECTIVE: The patient was seen and evaluated at approximately 1:00 p.m. I had ordered some dialysis this morning with the dialysis nurse, but the patient became very unstable and became very hypotensive. At that time, I decided to abort the procedure. The patient is making good urine output. I discussed this with the daughter at bedside about re-initiating HD tomorrow. Today, he was very unstable. She agreed with plan of care. LABORATORY DATA: Labs show CBC, white count 11, hemoglobin 11, hematocrit 35, platelets of 125. Chemistry, sodium 139, potassium 3.9, chloride 97, bicarb 25, anion gap of 20. BUN is 11, creatinine 6.9, glucose 143, calcium 7.9. MICROBIOLOGY: Shows no growth. PHYSICAL EXAMINATION: VITAL SIGNS: Temperature is 98.1, pulse 99, respiratory rate is 25, blood pressure is 112/73, pulse ox 96% on 4 L nasal cannula. GENERAL: Not in acute distress. Alert and oriented x3. Cooperative on examination. HEENT: Head; normocephalic, atraumatic. Eyes; pupils are equal, round, and reactive to light bilaterally. Extraocular movements intact bilaterally. Throat; no evidence of erythema or exudates in the posterior pharynx. Has poor dentition. NECK: Supple. Good range of motion. PULMONARY: Clear to auscultation bilaterally. No wheezing, no rales, no rhonchi, no crackles appreciated. CARDIOVASCULAR: Positive S1 and S2. No murmurs, rubs, or gallops appreciated. GASTROINTESTINAL: Abdomen is soft, nondistended, and nontender to palpation. Bowel sounds present. MUSCULOSKELETAL: Strength is 5/5 throughout. No evidence of any muscle deficits on examination. No weakness appreciated. SKIN: Intact. Warm to touch. Good cap refill. PSYCHIATRIC: Normal affect and mood. EXTREMITIES: No edema. Good range of motion throughout. IMPRESSION: 1. Acute kidney injury, presumed to be secondary to underlying acute tubular necrosis. 2. Rhabdomyolysis. 3. Anion gap metabolic acidosis. 4. Uremia. 5. Hyperkalemia -- resolved. 6. Volume overload. PLAN: At this time from a renal standpoint, he had HD treatment #3 not completed. It had to be aborted due to hypotension. I will go ahead and re-initiate HD tomorrow. We will increase to calcium bath tomorrow, possibly use Levophed to help remove extra fluid. He is doing very well with the Bumex drip. Continue with Bumex drip HD tomorrow. Discussed plan of care with daughter, family, and nursing staff. MD RADHA Mariano/CONSTANTINE /[id number]
[2019-12-28] MEDS: BUMETANIDE 10 MG in SODIUM CHLORIDE 0.9% 100 ML 60 ML IV SCH ×2 (04:31→09:32)
[2019-12-28 06:20] LABS: BASOPHILS # (AUTO) 0.1 (0.0-0.1); BASOPHILS % 0.5 % (0.0-1.0); EOSINOPHILS # (AUTO) 0.1 (0.0-0.4); EOSINOPHILS % 0.6 % (0.0-6.0); HEMATOCRIT 36.7 % (38.2-49.6); HEMOGLOBIN 12.1 g/dL (14.0-18.0); LYMPHOCYTES # (AUTO) 4.7 (1.0-3.2); LYMPHOCYTES % 32.7 % (18.0-39.1); MEAN CORPUSCULAR HEMOGLOBIN 28.9 pg (28-32); MEAN CORPUSCULAR VOLUME 87.8 fL (81-99); MONOCYTES # (AUTO) 0.6 (0.2-0.8); NEUTROPHILS # (AUTO) 8.7 (2.1-6.9); NEUTROPHILS % 61.1 % (38.7-80.0); PLATELET COUNT 162 x10e3/uL (140-360); RED BLOOD COUNT 4.18 x10e6/uL (4.3-5.7); RED CELL DISTRIBUTION WIDTH 14.6 % (11.7-14.4)
[2019-12-28 06:54] LABS: ALBUMIN 2.7 g/dL (3.5-5.0); ALBUMIN/GLOBULIN RATIO 0.5 (0.8-2.0); ANION GAP 21.5 mmol/L (8-16); CALCIUM 8.2 mg/dL (8.4-10.2); CREATININE, SERUM 6.98 mg/dL (0.72-1.25); POTASSIUM 3.5 mmol/L (3.5-5.1)
[2019-12-28 07:44] LABS: PARTIAL THROMBOPLASTIN TIME 31.4 seconds (23.8-35.5)
[2019-12-28 08:07] LABS: INR 0.99; PROTHROMBIN TIME 13.7 seconds (11.9-14.5)
[2019-12-28 08:54] LABS: ABG HCO3 25 mmol/L (22-26); ABG PCO2 29 mmHg (35-45); ABG PH 7.55 (7.35-7.45); ABG PO2 71 mmHg (80-105)
[2019-12-28] MEDS: FAMOTIDINE 20 MG/2 ML VIAL IV SCH ×2 (09:32→17:00)
[2019-12-28 12:06] LABS: BAND NEUTROPHILS % (MANUAL) 1 %; EOSINOPHILS % (MANUAL) 1 % (0-7); LYMPHOCYTES % (MANUAL) 16 % (19-48); MONOCYTES % (MANUAL) 1 % (3.4-9.0); NEUTROPHILS % (MANUAL) 81 % (40-74)
[2019-12-28] MEDS ORDERED: MIDODRINE HCL 5 MG TABLET ONE (12:41)
[2019-12-28] MEDS: MIDODRINE HCL 5 MG TABLET PO SCH ×2 (12:42→18:01)
--- NOTE | 2019-12-28 15:35 | Progress Note ---
DATE: SUBJECTIVE: Mr. Luz seems to be more alert. No new complaints. Daughter at the bedside. REVIEW OF SYSTEMS: Otherwise negative. He did not have the LP yet. He is going to have it today. PHYSICAL EXAMINATION: GENERAL: He is currently alert. No fever. HEENT: Not icteric. NECK: Supple. CHEST: Clear. HEART: S1 and S2. No S3, S4, or murmur. ABDOMEN: Soft. IMPRESSION: 1. Altered mental status with fever, concerned about listeria. Other possibilities, being investigated. We are waiting on the LP. We are waiting on the serology. So far, cultures and blood cultures are negative. Discussed with the daughter. 2. Chronic kidney disease. 3. Pneumonia, present on admission community-acquired. The plan is to continue with fluconazole and ampicillin till we get the LP. He seems clinically better with these two drugs. We will follow. MD ESTELLA Garza/CONSTANTINE /[id number]
[2019-12-28] MEDS ORDERED: MIDODRINE 2.5 MG TAB PO SCH (16:00)
[2019-12-28] MEDS ORDERED: LIDOCAINE HCL 1% LOCAL INJ 20 ML VIAL ONE (16:01)
[2019-12-28] MEDS ORDERED: SODIUM CHLORIDE 0.9% 500ML 500 ML ONE (16:44)
[2019-12-28 17:55] LABS: APPEARANCE,CSF CLEAR (CLEAR); COLOR,CSF COLORLESS (COLORLESS); TUBE NUMBER 3
[2019-12-28 17:56] LABS: WHITE BLOOD CELL,CSF 3 cells/uL (0-5)
[2019-12-28] MEDS: FENOFIBRATE 145 MG TAB PO SCH (18:01)
[2019-12-28] MEDS: ASPIRIN 81 MG CHEW TAB PO SCH (18:01)
[2019-12-28] MEDS: ENOXAPARIN SOD INJ 40 MG/0.4 ML SYR SC SCH (18:02)
[2019-12-28 18:10] LABS: TOTAL PROTEIN,CSF 65.4 mg/dL (15-40)
--- NOTE | 2019-12-28 18:55 | Progress Note ---
DATE: SUBJECTIVE: The patient was seen by Infectious Disease. He is going for lumbar puncture today. PHYSICAL EXAMINATION: VITAL SIGNS: The blood pressure is 118/57, saturation is 95%. The pulse is 91. Respiratory rate is 26. HEENT: Shows no facial swelling or erythema. CARDIAC: Reveals regular rate and rhythm with normal S1 and S2. LUNGS: Auscultation of lungs shows decreased breath sounds at the bases. There is no wheezing. ABDOMEN: Soft, nontender. There is no rebound or guarding. EXTREMITIES: Show no leg edema or calf tenderness. LABORATORY DATA: White blood cell count is 14.3, hemoglobin is 12.1, and platelet count is 162. BUN to creatinine ratio is 110 to 6.98. Potassium is 3.5. Albumin is 2.7. IMPRESSION: 1. Acute renal failure. 2. Metabolic encephalopathy. 3. Aspiration pneumonia. 4. Anemia. 5. Thrombocytopenia. PLAN: 1. Await culture results. 2. Await LP results. 3. Continue dialysis. 4. Possible kidney biopsy. 5. Complete antibiotics. Kenyon Patterson MD [facility]/MODL /[id number]
[2019-12-28] MEDS: FLUCONAZOLE 200 MG/100 ML 100 ML IV SCH (21:13)
[2019-12-28] MEDS: AMPICILLIN SOD 2 GM/NS 100ML 100 ML IV SCH (21:13)
[2019-12-29] VITALS (12 sets, daily range): BP systolic 73–116; BP diastolic 45–74
--- NOTE | 2019-12-29 00:31 | Progress Note ---
DATE: 12/28/2019 Nephrology Progress Note SUBJECTIVE: The patient is doing well. He was alert, awake, and oriented during my examination. Hemodialysis was performed today. PHYSICAL EXAMINATION: VITAL SIGNS: Temperature is 97.9, pulse was 103, respiratory rate was 26, blood pressure was 118/57, and pulse ox 95% on 4 L nasal cannula. GENERAL: He is alert and oriented x2. He is cooperative. PULMONARY: Clear to auscultation bilaterally. No wheezing, no rales, no rhonchi, no crackles appreciated. CARDIOVASCULAR: Positive S1 and S2. No murmurs, rubs, or gallops appreciated. ABDOMEN: Soft, nondistended, and nontender to palpation. Bowel sounds present. MUSCULOSKELETAL: Strength is 5/5 throughout. No evidence of any muscle deficits on examination. No weakness appreciated. NEUROLOGIC: Cranial nerve II through XII grossly intact. No evidence of any neurological deficits on exam. SKIN: Intact. Warm to touch. Good cap refill. PSYCHIATRIC: He is in appropriate mood, but sometimes confused. EXTREMITIES: No edema. Good range of motion throughout. LABORATORY DATA: Show white count was 14.3, hemoglobin is 12, hematocrit is 37, platelets of 162. Chemistry; sodium 143, potassium is 3.5, chloride 96, bicarbonate 29, anion gap of 21, BUN is 110, creatinine is 6.9, glucose is 134. A1c was 6.3, calcium is 8.2. LP showed RBCs 422, WBCs was 3. Clean CSF. Glucose 71, total protein 65, c-ANCA p-ANCA, double-stranded DNA, C3, C4, and UPEP was all found to be normal. RPR is pending. CMV, EBV are pending. HSV pending. HIV negative. Toxoplasmosis pending. MICROBIOLOGY: All cultures were found to be negative. IMPRESSION: 1. Acute kidney injury, presumed to be from acute tubular necrosis. 2. Rhabdomyolysis-resolved. 3. Anion gap metabolic acidosis. 4. Uremia. 5. Mild hyperkalemia. 6. Volume overload. PLAN: At this time, he has very little edema on exam. We will go ahead and discontinue the Bumex drip. He did receive HD treatment #3 today with low blood flow rate, ultrafiltration 2 L if tolerated, and we also started on oral midodrine. The patient tolerated HD treatment well with no issues. We are going to repeat HD tomorrow. Repeat labs and monitor creatinine levels. He will need a renal biopsy sometime early next week. I have also discussed the plan of care with daughter at bedside. MD RADHA Mariano/CONSTANTINE /[id number]
[2019-12-29 06:15] LABS: BASOPHILS # (AUTO) 0.1 (0.0-0.1); BASOPHILS % 0.5 % (0.0-1.0); EOSINOPHILS # (AUTO) 0.2 (0.0-0.4); EOSINOPHILS % 1.2 % (0.0-6.0); HEMATOCRIT 37.7 % (38.2-49.6); HEMOGLOBIN 11.9 g/dL (14.0-18.0); LYMPHOCYTES # (AUTO) 5.6 (1.0-3.2); MEAN CORPUSCULAR HGB CONC 31.6 g/dL (31-35); MONOCYTES # (AUTO) 0.6 (0.2-0.8); MONOCYTES % 4.6 % (4.4-11.3); NEUTROPHILS # (AUTO) 7.1 (2.1-6.9); NEUTROPHILS % 51.7 % (38.7-80.0); PLATELET COUNT 204 x10e3/uL (140-360); RED CELL DISTRIBUTION WIDTH 14.7 % (11.7-14.4)
[2019-12-29 06:32] LABS: ALBUMIN 2.6 g/dL (3.5-5.0); ALBUMIN/GLOBULIN RATIO 0.4 (0.8-2.0); ANION GAP 18.9 mmol/L (8-16); CALCIUM 8.1 mg/dL (8.4-10.2); CREATININE, SERUM 5.35 mg/dL (0.72-1.25); POTASSIUM 3.9 mmol/L (3.5-5.1)
[2019-12-29] MEDS: ALBUTEROL SULF 0.083% NEB SOLN 3 ML NEB NEB PRN ×2 (08:20→19:55)
[2019-12-29 08:23] LABS: ANISOCYTOSIS SLIGHT; EOSINOPHILS % (MANUAL) 1 % (0-7); HYPOCHROMASIA SLIGHT; LYMPHOCYTES % (MANUAL) 54 % (19-48); MONOCYTES % (MANUAL) 4 % (3.4-9.0); NEUTROPHILS % (MANUAL) 39 % (40-74); PLATELET ESTIMATE ADEQUATE; PLATELET MORPHOLOGY COMMENT NORMAL; RBC MORPHOLOGY COMMENT ABNORMAL; TOXIC GRANULATION SLIGHT
[2019-12-29] MEDS: FAMOTIDINE 20 MG/2 ML VIAL IV SCH ×2 (08:50→21:30)
[2019-12-29] MEDS: FENOFIBRATE 145 MG TAB PO SCH (08:50)
[2019-12-29] MEDS: ASPIRIN 81 MG CHEW TAB PO SCH (08:50)
[2019-12-29] MEDS: MIDODRINE HCL 5 MG TABLET PO SCH ×3 (08:50→18:12)
--- NOTE | 2019-12-29 09:38 | Progress Note ---
DATE: SUBJECTIVE: The patient went for an LP yesterday. He is continuing to receive dialysis. He had slight wheezing today. OBJECTIVE: VITAL SIGNS: The patient is afebrile. The blood pressure is 95/65 and the saturation is 96% on 2 L. HEENT: Shows no facial swelling or erythema. CARDIAC: Reveals a regular rate and rhythm with a normal S1 and S2. LUNGS: Auscultation of lungs reveals a prolonged expiratory phase bilaterally. There is no wheezing. ABDOMEN: Soft, nontender. There is no rebound or guarding. There is a nodular hematoma on the medial aspect of the left leg. LABORATORY DATA: BUN to creatinine ratio is 82 to 5.35. Other electrolytes are within normal limits. The albumin is 2.6. The white blood cell count is 13.7 and hemoglobin is 11.9. The platelet count is 204. LP results, protein is 65.4, red blood cell count is 422 and the white blood cell count is 3. The glucose is 71. ASSESSMENT: 1. Acute renal failure from probable acute tubular necrosis. 2. Possible aspiration pneumonia. 3. Fever with concerns about listeria. PLAN: 1. Continue current antibiotics and await further input from Infectious Disease. 2. Continue dialysis as needed. 3. Continue to monitor electrolytes, BUN and creatinine. Case discussed with daughter, nursing, Infectious Disease and administration. Kenyon Patterson MD [facility]/MODL /[id number]
--- NOTE | 2019-12-29 10:13 | Diagnostic Imaging Report ---
EXAMINATION: CHEST SINGLE (PORTABLE) INDICATION: LLL infiltrate COMPARISON: Chest radiograph 12-26-2019. FINDINGS: Lines: Right IJ non tunneled hemodialysis catheter tip, likely overlying the SVC. LUNGS: Lungs are not well inflated. Mild prominence of the pulmonary vasculature bilaterally. Decreased mild interstitial opacities. Right midlung platelike atelectasis. Left retrocardiac opacity. PLEURA: Small left pleural effusion. Probable trace right pleural effusion. No pneumothorax. HEART AND MEDIASTINUM: Cardiac size is mildly enlarged. BONES AND SOFT TISSUES: No acute osseous lesion. Soft tissues are unremarkable. UPPER ABDOMEN: No free air under the diaphragm. IMPRESSION: Small left pleural effusion with left retrocardiac opacity, more likely atelectasis than infection. Right midlung platelike atelectasis. Decreased mild pulmonary interstitial edema. Signed by: Dr. Michell Ferrera MD on 12/29/2019 10:10 AM
--- NOTE | 2019-12-29 16:09 | Progress Note ---
DATE: 12/29/2019 SUBJECTIVE: The patient is receiving hemodialysis today. I discussed the plan of care with the daughter and the patient at bedside. He has been receiving mannitol during treatment. Scheduled for renal biopsy hopefully on Tuesday. Urine output seems to be recorded inaccurately. OBJECTIVE: VITAL SIGNS: Temperature is 97.2, pulse 111, respiratory rate is 20, blood pressure is 112/70, and pulse ox 100% on nasal cannula. Urine output reported 2.7 L. GENERAL: In no acute distress, alert and oriented x3. Cooperative on examination. HEENT: Normocephalic, atraumatic. Eyes, pupils are equal, round, and reactive to light bilaterally. Extraocular movements are intact bilaterally. Throat, no evidence of erythema or exudates in the posterior pharynx. Has poor dentition NECK: Supple. Good range of motion. PULMONARY: Clear to auscultation bilaterally. No wheezing, rales, or crackles appreciated. CARDIOVASCULAR: Positive S1, S2. No gallops. ABDOMEN: Soft, nondistended, and nontender to palpation. Bowel sounds present. SKIN: Intact. Warm to touch. PSYCHIATRIC: Normal affect and mood. EXTREMITIES: No edema. Good range of motion throughout. LABORATORY DATA: Labs show white count 13.7, hemoglobin 11.9, hematocrit 37, and platelets of 204. Chemistry, sodium 141, potassium 3.9, chloride 99, bicarb 27, anion gap of 18, BUN is 82, creatinine is 5.3, glucose is 123, and calcium is 8.1. LFTs noted. Several serologies are pending. IMPRESSION: 1. Acute kidney injury with presumed chronic kidney disease, now with possible acute tubular necrosis. 2. Rhabdomyolysis. 3. Anion gap metabolic acidosis. 4. Uremia. 5. Mild hyperkalemia - resolved. 6. Volume overload - resolved. PLAN: At this time, he is receiving HD today, UF 1-2 L, duration 3 to 3.5 hours. Mannitol pre and during treatment. The patient was evaluated on HD. He is currently doing well with no other issues. Discussed plan of care with the patient and the patient's daughter at bedside and they verbalized understanding. MD RADHA Mariano/MODL /[id number]
[2019-12-29] MEDS ORDERED: HEPARIN SOD (PORCINE) 1000 UNIT/ML SDV ONE (16:12)
--- NOTE | 2019-12-29 16:33 | NUR ---
PROGRESS NOTE ABORATORY DATA: Labs show white count 13.7, hemoglobin 11.9, hematocrit 37, and platelets of 204. Chemistry, sodium 141, potassium 3.9, chloride 99, bicarb 27, anion gap of 18, BUN is 82, creatinine is 5.3, glucose is 123, and calcium is 8.1. LFTs noted. Several serologies are pending. IMPRESSION: 1. Acute kidney injury with presumed chronic kidney disease, now with possible acute tubular necrosis. 2. Rhabdomyolysis. 3. Anion gap metabolic acidosis. 4. Uremia. 5. Mild hyperkalemia - resolved. 6. Volume overload - resolved. [id number]
--- NOTE | 2019-12-29 19:00 | NUR ---
Received patient stable, due for transfer to room 197
--- NOTE | 2019-12-29 20:10 | Progress Note ---
DATE: SUBJECTIVE: Mr. Luz is alert, but confused, a little better. Family at the bedside. No fever since we changed antibiotics to ampicillin. His spinal fluid came back negative. PHYSICAL EXAMINATION: GENERAL: He is currently alert, follows simple command on dialysis. VITAL SIGNS: Stable, afebrile. HEENT: Not icteric. NECK: Supple. CHEST: Clear bilateral. COR: S1, S2. No S3, S4, or murmur. ABDOMEN: Soft. Bowel sounds present. EXTREMITIES: No edema. IMPRESSION: 1. Fever, he respond to ampicillin, which makes to believe it could be due to listeria. We will continue ampicillin, which also will treat his bacteremia and pneumonia. We will discontinue his acyclovir. 2. Renal failure. 3. Altered mental status, metabolic versus other. 4. Continue supportive care as ordered. Discussed with the family. Discussed with Internal Medicine. MD ESTELLA Garza/CONSTANTINE /[id number]
--- NOTE | 2019-12-29 20:30 | NUR ---
patient transferred stable, no complaints raised
--- NOTE | 2019-12-29 21:14 | NUR ---
Received patient from ICU bed 195 into 197. Family at bedside. Brother left. Bed alarm on. SR up x2.
[2019-12-29] MEDS: FLUCONAZOLE 200 MG/100 ML 100 ML IV SCH (21:30)
[2019-12-29] MEDS ORDERED: SODIUM CHLORIDE 0.9% 250ML 250 ML ONE (21:43)
[2019-12-29] MEDS: AMPICILLIN SOD 2 GM/NS 100ML 100 ML IV SCH (22:30)
[2019-12-30] VITALS (7 sets, daily range): BP systolic 102–117; BP diastolic 66–74
[2019-12-30 05:32] LABS: BASOPHILS # (AUTO) 0.1 (0.0-0.1); BASOPHILS % 0.7 % (0.0-1.0); EOSINOPHILS # (AUTO) 0.2 (0.0-0.4); EOSINOPHILS % 1.6 % (0.0-6.0); HEMATOCRIT 37.3 % (38.2-49.6); HEMOGLOBIN 11.6 g/dL (14.0-18.0); LYMPHOCYTES # (AUTO) 5.1 (1.0-3.2); LYMPHOCYTES % 40.3 % (18.0-39.1); MEAN CORPUSCULAR HEMOGLOBIN 28.9 pg (28-32); MEAN CORPUSCULAR HGB CONC 31.1 g/dL (31-35); MEAN CORPUSCULAR VOLUME 92.8 fL (81-99); MONOCYTES # (AUTO) 0.7 (0.2-0.8); MONOCYTES % 5.5 % (4.4-11.3); NEUTROPHILS # (AUTO) 6.4 (2.1-6.9); NEUTROPHILS % 50.4 % (38.7-80.0); PLATELET COUNT 278 x10e3/uL (140-360); RED BLOOD COUNT 4.02 x10e6/uL (4.3-5.7); RED CELL DISTRIBUTION WIDTH 14.6 % (11.7-14.4)
[2019-12-30 05:53] LABS: ALBUMIN 2.7 g/dL (3.5-5.0); ALBUMIN/GLOBULIN RATIO 0.4 (0.8-2.0); ANION GAP 21.1 mmol/L (8-16); CALCIUM 8.3 mg/dL (8.4-10.2); CREATININE, SERUM 5.48 mg/dL (0.72-1.25); POTASSIUM 4.1 mmol/L (3.5-5.1)
--- NOTE | 2019-12-30 06:45 | NUR ---
Cath. care done. Patient follow directions and well pleasantly confused. No noted pain or discomfort. Continue to monitor.
[2019-12-30] MEDS: MIDODRINE HCL 5 MG TABLET PO SCH ×3 (09:05→17:18)
[2019-12-30] MEDS: ASPIRIN 81 MG CHEW TAB PO SCH (09:06)
[2019-12-30] MEDS: FAMOTIDINE 20 MG/2 ML VIAL IV SCH ×2 (09:06→17:18)
[2019-12-30] MEDS: FENOFIBRATE 145 MG TAB PO SCH (09:07)
[2019-12-30 09:29] LABS: BAND NEUTROPHILS % (MANUAL) 1 %; EOSINOPHILS % (MANUAL) 1 % (0-7); LYMPHOCYTES % (MANUAL) 14 % (19-48); MONOCYTES % (MANUAL) 1 % (3.4-9.0); NEUTROPHILS % (MANUAL) 83 % (40-74)
--- NOTE | 2019-12-30 15:23 | NUR ---
Mr. Luz is alert, but confused, a little better. Family at the bedside. No fever since we changed antibiotics to ampicillin. His spinal fluid came back negative. PHYSICAL EXAMINATION: GENERAL: He is currently alert, follows simple command on dialysis. VITAL SIGNS: Stable, afebrile. HEENT: Not icteric. NECK: Supple. CHEST: Clear bilateral. COR: S1, S2. No S3, S4, or murmur. ABDOMEN: Soft. Bowel sounds present. EXTREMITIES: No edema. IMPRESSION: [id number]
--- NOTE | 2019-12-30 18:45 | Progress Note ---
DATE: SUBJECTIVE: Mr. Luz is doing better still, but confused. No new complaints. OBJECTIVE: VITALS: Stable, afebrile. HEENT: Not icteric. NECK: Supple. CHEST: Clear. HEART: S1, S2. No S3, S4, or murmur. ABDOMEN: Soft. Bowel sounds present. No tenderness. EXTREMITIES: No edema. SKIN: No rash. LABORATORY DATA: His c-ANCA, p-ANCA, all came back negative. Occult blood cultures still negative. IMPRESSION: 1. 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 No family for me to discuss. 2. Pneumonia, community acquired, present on admission. 3. Altered mental status, Neuro is following. 4. Chronic kidney disease. From Infectious Disease point of view, continue as ordered. We will follow. MD ESTELLA Garza/CONSTANTINE /[id number]
--- NOTE | 2019-12-30 18:49 | Progress Note ---
DATE: 12/30/2019 Nephrology Progress Note SUBJECTIVE: The patient is doing well today with no complaints. No overnight events. It seems like there is a problem with the dialysis catheter, which I will go ahead and put an IR consult to evaluate for tomorrow. LABORATORY FINDINGS: Show white count 12.6, hemoglobin 11, hematocrit 37, platelets of 278. Chemistry, sodium 139, potassium 4.1, chloride 99, bicarb 23, anion gap is 21. BUN is 67, creatinine is 5.48, glucose is 120, calcium is 8.3, albumin is 2.7. Urine eosinophils nondetected. Several serologies are pending. All cultures were negative. PHYSICAL EXAMINATION: VITAL SIGNS: Temperature is 97.7, pulse 89, respiratory rate 22, blood pressure 102/64, pulse ox 95% on 1 L nasal cannula. GENERAL: In no acute distress, alert and oriented x3. Cooperative on examination. HEENT: Head normocephalic, atraumatic. Eyes, pupils are equal, round, and reactive to light bilaterally. PULMONARY: Clear to auscultation bilaterally. No wheezing, rales, or rhonchi. No crackles appreciated. CARDIOVASCULAR: Positive S1, S2. No murmur, rubs, or gallops. GASTROINTESTINAL: Abdomen is soft, nondistended, and nontender to palpation. Bowel sounds present. MUSCULOSKELETAL: Strength is 5/5 throughout. No evidence of any muscle deficits on examination. No weakness appreciated. NEUROLOGIC: Cranial nerve 2 through 12 grossly intact. No evidence of any neurological deficits on exam. SKIN: Intact. Warm to touch. Good cap refill. PSYCHIATRIC: Normal affect and mood. EXTREMITIES: No edema. Good range of motion throughout. IMPRESSION: 1. Acute kidney injury, presumed chronic kidney disease, now with possible acute tubular necrosis. 2. Rhabdomyolysis. 3. Anion gap metabolic acidosis. 4. Uremia. 5. Volume overload -- resolved. PLAN: At this time, it seems there may be a problem with the dialysis catheter as his BUN and creatinine are still the same from yesterday. He may have some recirculation issues with the catheter. I will not be able to perform a renal biopsy tomorrow as his BUN is still elevated. I have already put an IR consult to evaluate that catheter and get dialysis for tomorrow. Once his BUN is better, then we can get a renal biopsy. I did repeat a UA for further evaluation and management. Discussed plan of care with nursing staff. MD RADHA Mariano/CONSTANTINE /[id number]
[2019-12-30 18:55] LABS: CLARITY,URINE SL CLOUDY (CLEAR); COLOR,URINE YELLOW (YELLOW); LEUKOCYTE ESTERASE ,URINE NEGATIVE (NEGATIVE)
[2019-12-30 18:56] LABS: BILIRUBIN,URINE SMALL (NEGATIVE); KETONES,URINE NEGATIVE (NEGATIVE); NITRITE,URINE NEGATIVE (NEGATIVE); PROTEIN,URINE DIPSTICK 2+ (NEGATIVE); URINE UROBILINOGEN 0.2 mg/dL (0.2 - 1)
[2019-12-30 19:07] LABS: BACTERIA,URINE FEW /HPF; EPITHELIAL CELLS,URINE FEW /LPF
[2019-12-30] MEDS ORDERED: SODIUM CHLORIDE 0.9% 250ML 250 ML ONE (19:37)
[2019-12-30] MEDS: FLUCONAZOLE 200 MG/100 ML 100 ML IV SCH (19:45)
[2019-12-30] MEDS: AMPICILLIN SOD 2 GM/NS 100ML 100 ML IV SCH (21:42)
[2019-12-31] VITALS (9 sets, daily range): BP systolic 100–120; BP diastolic 66–76
[2019-12-31 05:11] LABS: BASOPHILS % 0.4 % (0.0-1.0); EOSINOPHILS # (AUTO) 0.3 (0.0-0.4); EOSINOPHILS % 2.4 % (0.0-6.0); HEMATOCRIT 32.7 % (38.2-49.6); HEMOGLOBIN 10.6 g/dL (14.0-18.0); LYMPHOCYTES # (AUTO) 3.8 (1.0-3.2); LYMPHOCYTES % 33.8 % (18.0-39.1); MEAN CORPUSCULAR HEMOGLOBIN 29.4 pg (28-32); MEAN CORPUSCULAR HGB CONC 32.4 g/dL (31-35); MEAN CORPUSCULAR VOLUME 90.6 fL (81-99); MONOCYTES # (AUTO) 0.6 (0.2-0.8); MONOCYTES % 5.4 % (4.4-11.3); NEUTROPHILS # (AUTO) 6.4 (2.1-6.9); NEUTROPHILS % 56.8 % (38.7-80.0); PLATELET COUNT 286 x10e3/uL (140-360); RED BLOOD COUNT 3.61 x10e6/uL (4.3-5.7); RED CELL DISTRIBUTION WIDTH 14.5 % (11.7-14.4)
[2019-12-31 05:27] LABS: ALBUMIN 2.7 g/dL (3.5-5.0); ALBUMIN/GLOBULIN RATIO 0.5 (0.8-2.0); CREATININE, SERUM 6.41 mg/dL (0.72-1.25)
--- NOTE | 2019-12-31 06:30 | NUR ---
Patient resting in bed with call light within reach. No issues or concerns noted with daughter at bedside.
--- NOTE | 2019-12-31 08:28 | Diagnostic Imaging Report ---
EXAM: MODIFIED BA. SWALLOW DATE: 12/27/2019 2:30 PM INDICATION: Aspiration Fluoroscopy Time: 3.1 min. Reference Air Kerma (Ka, r): 18.0 mGy. COMPARISON: None FINDINGS/IMPRESSION: Modified there are swallow was performed by the speech pathologist. The radiologist was not present for the examination. An intraprocedural interpretation was not requested. Acquired images demonstrate no honorio subglottic tracheal aspiration. Please refer to speech report for further details. Signed by: Dr. Mj Mullins MD on 12/31/2019 8:25 AM
[2019-12-31] MEDS: FAMOTIDINE 20 MG/2 ML VIAL IV SCH ×2 (08:31→18:00)
[2019-12-31] MEDS: ASPIRIN 81 MG CHEW TAB PO SCH (08:31)
[2019-12-31] MEDS: MIDODRINE HCL 5 MG TABLET PO SCH ×3 (08:31→15:28)
[2019-12-31] MEDS: FENOFIBRATE 145 MG TAB PO SCH (08:31)
[2019-12-31] MEDS ORDERED: GUAIFENESIN 600MG/DEXTROMETHORPHAN 30MG TABSR PO PRN (09:30)
[2019-12-31] MEDS ORDERED: BENZONATATE 100 MG CAP PO PRN (09:30)
--- NOTE | 2019-12-31 09:30 | NUR ---
PT ALERT, DAUGHTER AT BEDSIDE. UPDATED PER MD AND IR THAT CURRENT TEMP CATH NOT EFFECTIVE/RESPONSIVE WITH DIALYSIS PER LABS. MD ORDERED TO PLACE TUNNELED, PER IR SHOULD BE AROUND 230PM. PT TO BE NPO AT THIS TIME.
--- NOTE | 2019-12-31 11:03 | Progress Note ---
DATE: SUBJECTIVE: The patient is seen and evaluated. Available labs and notes reviewed. Discussed with the daughter. Questions answered. With the patient's permission, radiology studies available in computer was shared with the daughter. REVIEW OF SYSTEMS: No complaints. Again discussed with the daughter. No new issues. No nausea, vomiting, fever, chills, chest pain, shortness of breath, headache, or rash. PHYSICAL EXAMINATION: VITAL SIGNS: Temperature 98.0, pulse 87, respiration 24, and blood pressure 105/75. GENERAL: Alert and oriented, on O2 nasal cannula, comfortable, in no acute distress. CV: S1 and S2. CHEST: Equal expansion. Decreased breath sounds. No acute distress. ABDOMEN: Soft, obese, and nontender. HEENT: Moist. No pallor. No JVD. EXTREMITIES: Moves. No acute distress. MEDICATIONS: Medication list reviewed and from Infectious Disease point of view, the patient is on ampicillin and Diflucan. LABORATORY STUDIES: White count 11.21, hemoglobin 10.6, and platelet 286. Sodium 137, potassium 4, and creatinine is 6.41. HIV 12/22, not reactive. Toxoplasmosis; EBV, CMV, HSV, and urine histoplasma antigen all pending. MICROBIOLOGY: Blood culture and urine culture negative so far. RADIOLOGY STUDIES: Chest x-ray from 12/28, showed small left pleural effusion with left retrocardiac opacity, more likely atelectasis than infection, right mid lung platelike atelectasis, decreased small pulmonary interstitial edema. ASSESSMENT AND PLAN: 1. Fever seems to be improved. 2. Altered mental status. 3. Pneumonia. 4. Debility. 5. Obesity. 6. The patient is status post LP with a white count of 3 with a glucose level of 71 and protein level of 65.4. Glucose and protein level are both elevated with white counts within normal range. Cultures negative. Chest x-ray as mentioned above. Fever resolved. Continue with ampicillin and Diflucan. Please refer to Dr. Vargas's note on 12/30/2019. We will follow up with serology. Further management of this patient is based on daily findings on laboratory and physical examination. Dictated by Beni Hooks PA-C (Al) Kristian Vargas MD /MODL /[id number]
--- NOTE | 2019-12-31 12:34 | NUR ---
ST NOTE: Pt NPO for procedure, unable to participate in PO trials at this time. Pt much stronger, walked with PT and is conversing well, cognitive thoughts. Daughter present and pleased with hi progress. Will follow up x 1 more for diet tolerance and possible upgrade.
[2019-12-31] MEDS ORDERED: MIDAZOLAM HCL 2 MG/2 ML VIAL ONE (14:46)
[2019-12-31] MEDS ORDERED: FENTANYL CITRATE/PF 100MCG/2 ML INJ ONE (14:47)
[2019-12-31] MEDS ORDERED: SODIUM CHLORIDE 0.9% 250ML 250 ML ONE (14:51)
[2019-12-31] MEDS ORDERED: HEPARIN SOD (PORCINE) 1000 UNIT/ML SDV ONE (14:51)
--- NOTE | 2019-12-31 14:51 | NUR ---
pt left for catheter placement
[2019-12-31] MEDS ORDERED: HEPARIN SOD (PORCINE) 1000 UNIT/ML SDV IV PRN (15:00)
[2019-12-31] MEDS ORDERED: MANNITOL 25% 12.5GM/50 ML VIAL IV PRN (15:00)
--- NOTE | 2019-12-31 15:29 | Progress Note ---
DATE: SUBJECTIVE: Mr. Luz seems to be a little bit more alert. Family at the bedside. REVIEW OF SYSTEMS: HEENT: Negative. PULMONARY: Negative. CARDIAC: Negative. PHYSICAL EXAMINATION: GENERAL: He is currently alert and, oriented. VITAL SIGNS: Stable, afebrile. HEENT: He is not icteric. NECK: Supple. CHEST: Clear. HEART: S1 and S2. ABDOMEN: Soft. IMPRESSION: 1. 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 Cultures are negative, but we will continue ampicillin for 3 weeks. 2. Altered mental status seems to be getting better. 3. Pneumonia on admission, community acquired better. 4. Debility. 5. Obesity. 6. Chronic kidney disease. Discussed with the daughter. We will follow. MD ESTELLA Garza/CONSTANTINE /[id number]
--- NOTE | 2019-12-31 15:51 | NUR ---
Nutrition Intervention Note RD Recommendation(s) for Physician: -Continue current diet, texture per LODGING MANAGER -Continue Nepro TID Plan of Care: RD following, monitoring for tolerance and adequacy, ONS rec Nutrition reason for involvement: follow up RD Assessment 12/30: Follow up. Pt discussed during MDR, CR trending up per RN. Pt out of room for HD catheter replacement and plan for HD. Pt with 75% intake per chart, intake improving. LODGING MANAGER following, currently on texture modified diet. Chart reviewed. Will continue to monitor. 12/26 69yo M, who was admitted for CYNDY and PNA. Pt is receiving HD treatment. Phos and K has trend down to normal. Per RN, pt with poor appetite and little to none PO intake. Pt has been quite fatigued and had fevers overnight. LODGING MANAGER following for diet upgrade. Will continue to monitor and follow. Principal Problems/Diagnoses: 1. Acute kidney injury on HD. 2. Pneumonia. PMH: DVT, non compliance with medications, anemia, gastroenteritis, HTN GI: abdomen soft, non-tender, liquid brown stool 12/30 Skin: intact Labs: 12/30: Na 137, K 4, BUN 95, Cr 6.41, Gluc 110, Ca 8 (12/26) BUN 100, Creatinine 6.95 H, Ca 7.9 L, Meds: tricor, pepcid, abx, norco, zofran Ht: 71in Wt: 268lb BMI: 37.4kg/m2 IBW: 172lb +/- 10% Adjusted BW: 210lb Malnutrition Evaluation (12/26) Unable to assess at this time. Nutrition Prescription (Diet Order): Renal, pureed, nectar thick liquids. Nepro TID. Estimated Nutritional Needs: (CYNDY, GFR<15 on HD, non-ventilated, obese) Calories: 2850 - 3325kcal(30-35kcal/kg/d) Weight used: ABW Protein: 76 - 114g(0.8-1.2/kg/d) Weight used: ABW Diet Adequacy: meeting calorie needs, meeting protein needs per current 75% intake Tolerance: Tolerating po Diet Education Needs Assessment: Diet education not indicated. Nutrition Care Level: moderate Nutrition Diagnosis: Inadequate oral intake related to current medical status as evidenced by poor PO intake x 4 days. Goal: Patient will meet 75-100% of estimated needs by follow up Progress: Progressing Interventions: Modified diet, Commercial beverage, Prescription medications, Recommended Modifications, Collaboration with other providers Monitoring/Evaluation: Total energy intake, Total protein intake, Modified diet, Liquid supplement, Weight change Signed: Stacy Reyes RD, [place], [facility]
[2019-12-31] MEDS: FLUCONAZOLE 200 MG/100 ML 100 ML IV SCH (18:00)
[2019-12-31] MEDS: ALBUTEROL SULF 0.083% NEB SOLN 3 ML NEB NEB PRN (20:00)
--- NOTE | 2019-12-31 23:43 | NUR ---
Report given to Deyanira Santo RN, RN assuming care.
[2020-01-01] VITALS (10 sets, daily range): BP systolic 80–129; BP diastolic 64–75
[2020-01-01] MEDS: AMPICILLIN SOD 2 GM/NS 100ML 100 ML IV SCH (00:08)
--- NOTE | 2020-01-01 01:51 | Progress Note ---
DATE: 12/31/2019 Nephrology Progress Note SUBJECTIVE: The patient was seen and evaluated at approximately 1:10 p.m. this afternoon with the nurse, Dahlia. The patient is doing well today. No overnight events. I spoke with the daughter at bedside about changing the temporary HD catheter for a tunneled HD catheter. I do not have any records of his prior creatinine. She did give me a phone number to a PCP. I did try calling Dr. Terry, but I was unsuccessful. I am not sure if his office is closed. She now endorsed to me, the daughter, that the patient, her father, does not seem to have been following up with any doctor that she is aware of. I discussed with her that the temporary HD catheter seems to be not working, hence the reason for exchanging the catheter today. PHYSICAL EXAMINATION: VITAL SIGNS: Temperature is 98.6, pulse 86, respiratory rate 26, blood pressure 114/71, pulse ox is 100% on room air. GENERAL: Not in acute distress, alert and oriented x3. Cooperative on examination. PULMONARY: Clear to auscultation bilaterally. No wheezing, rales, or rhonchi. No crackles appreciated. CARDIOVASCULAR: Positive S1, S2. No gallops appreciated. ABDOMEN: Soft, nondistended, and nontender to palpation. Bowel sounds present. MUSCULOSKELETAL: Strength is 5/5 throughout. No evidence of any muscle deficits on examination. No weakness appreciated. NEUROLOGIC: Cranial nerve 2 through 12 are grossly intact. No evidence of any neurological deficits on exam. SKIN: Intact. Warm to touch. PSYCHIATRIC: Normal affect and mood. EXTREMITIES: No edema. Good range of motion throughout. LABORATORY DATA: White count 11, hemoglobin 10, hematocrit is 32, platelets of 286. Chemistry; sodium 137, potassium 4, chloride 96, bicarb 22, anion gap of 23, BUN 95, creatinine 6.4, calcium is 8, albumin is 2.7. C-ANCA, p-ANCA all negative. Urine immunofixation negative. C3, C4, double-stranded DNA was all negative. HIV negative. Toxoplasmosis negative. EBV negative. RPR negative. IMPRESSION: 1. Acute kidney injury, presumed to be chronic kidney disease with possible underlying acute tubular necrosis. 2. Rhabdomyolysis-resolved. 3. Anion gap metabolic acidosis. 4. Uremia. 5. Volume overload-resolved. PLAN: At this time, the patient's HD catheter temporary was not working appropriately based on the labs. I discussed with the daughter that I would need to change his temporary HD catheter for a permanent catheter. IR was consulted. Tunneled HD catheter will be placed. He will receive HD today as well as tomorrow morning. Plan is to get a renal biopsy soon to determine the etiology of his renal failure. It seems to be more chronic in nature than acute. On any rate, I did discuss with the daughter that he does need an outpatient HD unit and will follow up on the pathology at the outpatient setting. She verbalized understanding and agrees to plan of care. I also discussed with her that he may need long-term facility placement as he is very weak. She will notify me tomorrow about what her plans are, either long-term versus home, irrelevant, he will still need an HD unit which I discussed with case management. MD RADHA Mariano/CONSTANTINE /[id number]
[2020-01-01 05:14] LABS: BASOPHILS # (AUTO) 0.1 (0.0-0.1); BASOPHILS % 0.5 % (0.0-1.0); EOSINOPHILS # (AUTO) 0.2 (0.0-0.4); EOSINOPHILS % 1.7 % (0.0-6.0); HEMATOCRIT 35.8 % (38.2-49.6); HEMOGLOBIN 11.2 g/dL (14.0-18.0); LYMPHOCYTES # (AUTO) 2.6 (1.0-3.2); LYMPHOCYTES % 25.3 % (18.0-39.1); MEAN CORPUSCULAR HEMOGLOBIN 28.9 pg (28-32); MEAN CORPUSCULAR HGB CONC 31.3 g/dL (31-35); MEAN CORPUSCULAR VOLUME 92.3 fL (81-99); MONOCYTES # (AUTO) 0.6 (0.2-0.8); NEUTROPHILS # (AUTO) 6.8 (2.1-6.9); NEUTROPHILS % 65.5 % (38.7-80.0); PLATELET COUNT 256 x10e3/uL (140-360); RED BLOOD COUNT 3.88 x10e6/uL (4.3-5.7); RED CELL DISTRIBUTION WIDTH 14.6 % (11.7-14.4)
[2020-01-01 05:33] LABS: ALBUMIN 2.8 g/dL (3.5-5.0); ALBUMIN/GLOBULIN RATIO 0.5 (0.8-2.0); ANION GAP 18.9 mmol/L (8-16); CALCIUM 8.5 mg/dL (8.4-10.2); CREATININE, SERUM 4.13 mg/dL (0.72-1.25); POTASSIUM 3.9 mmol/L (3.5-5.1)
--- NOTE | 2020-01-01 09:11 | NUR ---
WENT TO SPEAK WITH DAUGHTER AND PATIENT ABOUT THE DIALYSIS SET UP. DTR NATACHAFENG BHATIA [phone] STATES SHE HAS NOT SPOKEN WITH HER FAMILY ABOUT WHETHER OR NOT THEY ARE TAKING THE PT TO [place] OR [place]. SHE STATES SHE HAS SPOKEN WITH THE PT BUT NOT HER UNCLE IN [place]. SHE STATES SHE IS GOING TO GO HOME AND LIE DOWN FOR AWHILE AND TAKE SOME MEDICATION FOR HERSELF AND THAT THE CM CAN CALL HER LATER TO DISCUSS THE REHAB PLACEMENT. UPDATED CM. GAVE CARD IF SHE HAS ANY OTHER QUESTIONS.
[2020-01-01] MEDS: MIDODRINE HCL 5 MG TABLET PO SCH ×3 (09:26→16:46)
[2020-01-01] MEDS: FAMOTIDINE 20 MG/2 ML VIAL IV SCH ×2 (09:26→16:46)
[2020-01-01] MEDS: FENOFIBRATE 145 MG TAB PO SCH (09:26)
[2020-01-01] MEDS: ASPIRIN 81 MG CHEW TAB PO SCH (09:26)
--- NOTE | 2020-01-01 09:45 | NUR ---
DISCUSSED PLAN OF CARE WITH EMELI [employer]IATE STATES PT WILL NEED ACUTE REHAB (PER DTR'S REQUEST) ORDER FOR ACUTE REHAB REC'D EXPLAINED TO EMELI THAT OP HD WILL HAVE TO BE SET UP PRIOR TO PT TRANSFERING TO ACUTE REHAB
--- NOTE | 2020-01-01 10:30 | Progress Note ---
DATE: SUBJECTIVE: The patient is seen and evaluated. Available labs and notes reviewed. Discussed with the nurse. Dialysis nurse in the room. Daughter is in room. However, at that point, he was not feeling well. This morning, he ran a temperature of 100.2 per staff and apparently, he is in the progress of leaving the facility. The patient overall, no new complaints noted. REVIEW OF SYSTEMS: No nausea, vomiting, fever, chills, chest pain, shortness of breath, rash. OBJECTIVE: VITAL SIGNS: Temperature is 98.8, pulse is 94, respirations 24, blood pressure 108/67. GENERAL: Alert and oriented, no acute distress. CV: S1, S2. CHEST: Equal expansion. Clear to auscultation. No acute distress. HEENT: Moist. No pallor. No JVD. EXTREMITIES: No obvious acute finding. Moves extremities. MEDICATIONS: Medication list reviewed. As far as Infectious Disease point of view, the patient is on ampicillin and Diflucan. LABORATORY STUDIES: White count of 10.4, improved from 11.2, hemoglobin 11.2, and platelets 256,000. Sodium 135, potassium 3.9; creatinine, the patient on dialysis. SEROLOGY: RPR 12/27 not reactive. CMV IgM less than 30, EBV IgM less than 36, toxoplasma IgM less than three, HIV not reactive. HSV PCR is pending. His urine histoplasma antigen is pending. Coronavirus PCR is not reactive on 12/20 and 12/21. MICROBIOLOGY: December 25, blood culture and 12/20 blood culture negative. Urine culture on 12/20 is negative. RADIOLOGY STUDIES: Status post insertion of tunneled cath. ASSESSMENT AND PLAN: 1. Altered mental status, improved. 2. Pneumonia. 3. Fever. 4. Debility. 5. Obesity. 6. Chronic kidney disease, status post tunneled catheter for dialysis. 7. Fevers resolved. The patient is on ampicillin for a total of 3 weeks. Continue with dialysis per Renal recommendation. Continue to monitor the patient clinically. Follow with the labs. Further management of this patient is based on daily findings on laboratory and physical examination. Discussed with Dr. Vargas in details. Please refer to chart for more information. Dictated by Beni Hooks PA-C (Al) Zaher Shebib, MD /CONSTANTINE /[id number]
[2020-01-01] MEDS ORDERED: SODIUM CHLORIDE 0.9% 250ML 500 ML IV PRN (11:00)
[2020-01-01] MEDS ORDERED: ALBUMIN 25% 12.5GM 0.25 GM/ML BTL IV PRN (11:00)
[2020-01-01] MEDS ORDERED: SODIUM CHLORIDE 0.9% 1000ML 2,000 ML IV PRN (11:00)
--- NOTE | 2020-01-01 14:37 | NUR ---
CALL TO MUNA WITH [facility] AND EM WITH [facility] STATE THAT THEIR CM CAN SET UP OP HEMODIALYSIS FOR THIS PT DR MENDOZA NOTIFIED AND HE WILL SPEAK WITH THE NEPHROLOGISTS WHO GO THERE AND COORDINATE CARE UNABLE TO REACH PT'S DTR ON PHONE FOR CHOICE SHE WENT HOME FROM THIS HOSPITAL WITH FEVER AND MIGRAINE AND STATES SHE IS GOING HOME TO TAKE PAIN MEDS AND SLEEP CM TO FOLLOW
--- NOTE | 2020-01-01 15:04 | NUR ---
Patient arrived to room 298 at 1417. Patient was AOx2. Patient was assessed and oriented room, procedures, and had no complaints. Will continue to monitor.
--- NOTE | 2020-01-01 19:20 | NUR ---
Patient received lying in bed. AAO x 3. No complaints of pain. No signs of respiratory distress. Hernandez catheter draining clear pale urine. Safety measures implemented. Patient instructed to call for assistance when needed. Call light within reach.
[2020-01-01] MEDS ORDERED: SODIUM CHLORIDE 0.9% 250ML 250 ML ONE (21:45)
[2020-01-02] VITALS (7 sets, daily range): BP systolic 97–129; BP diastolic 57–71
[2020-01-02] MEDS: AMPICILLIN SOD 2 GM/NS 100ML 100 ML IV SCH (00:36)
--- NOTE | 2020-01-02 02:31 | Progress Note ---
DATE: 01/01/2020 Nephrology Progress Note SUBJECTIVE: The patient is doing much better today. He is alert, awake, and oriented. He is still very weak, needing rehab. Dialysis was ordered, he did receive it today and he tolerated it very well. PHYSICAL EXAMINATION: VITAL SIGNS: Temperature during my evaluation was 98.4, pulse 99, respiratory rate is 18, blood pressure 114/74, pulse ox 100%. He was on 1 L nasal cannula. GENERAL: No acute distress. Alert and oriented x3. Cooperative on examination. HEENT: Head is normocephalic, atraumatic. Eyes; pupils are equal, round, reactive to light bilaterally. Extraocular movements intact bilaterally. Throat; no evidence of erythema or exudates in the posterior pharynx. Has poor dentition. NECK: Supple. Good range of motion throughout. PULMONARY: Clear to auscultation bilaterally. No wheezing, rales, or rhonchi. No crackles appreciated. CARDIOVASCULAR: Positive S1, S2. No murmurs, rubs, or gallops appreciated. ABDOMEN: Soft, nondistended, nontender to palpation. Bowel sounds present. MUSCULOSKELETAL: Strength is 5/5 throughout. No evidence of any muscle deficits on examination. No weakness appreciated. SKIN: Intact. Warm to touch. Good cap refill. PSYCHIATRIC: Normal affect and mood. EXTREMITIES: No edema. Good range of motion throughout. LABORATORY DATA: White count 10, hemoglobin 11, hematocrit 35, platelets of 256. Chemistry; sodium 135, potassium 3.9, chloride 98, bicarb 22, anion gap of 18, BUN 61, creatinine is 4.13, glucose is 133. Urine output recorded was 300 mL, HSV is still pending. CMV negative. EBV negative. Toxoplasmosis negative. HIV negative. RPR negative. Urine histoplasmosis pending. All cultures negative. IMPRESSION: 1. Acute kidney injury, presumed to be underlying chronic kidney disease with possible underlying acute tubular necrosis. 2. Rhabdomyolysis-resolved. 3. Anion gap metabolic acidosis. 4. Uremia. 5. Volume overload-resolved. PLAN: The patient received hemodialysis today. He is doing very well, alert and oriented. Zero UF, 3K bath, 2.5 calcium, duration is 3 hours. No mannitol is needed. We will go ahead and get a renal biopsy tomorrow to determine the etiology of his renal failure. He is otherwise doing very well on dialysis. We are arranging outpatient dialysis unit as well. There is no family at bedside today, but I discussed the plan of care with case management and the patient. MD RADHA Mariano/MODL /[id number]
[2020-01-02 06:56] LABS: BASOPHILS # (AUTO) 0.1 (0.0-0.1); BASOPHILS % 0.6 % (0.0-1.0); EOSINOPHILS # (AUTO) 0.1 (0.0-0.4); EOSINOPHILS % 1.3 % (0.0-6.0); HEMATOCRIT 32.3 % (38.2-49.6); HEMOGLOBIN 10.3 g/dL (14.0-18.0); LYMPHOCYTES # (AUTO) 2.5 (1.0-3.2); LYMPHOCYTES % 22.9 % (18.0-39.1); MEAN CORPUSCULAR HEMOGLOBIN 29.2 pg (28-32); MEAN CORPUSCULAR HGB CONC 31.9 g/dL (31-35); MEAN CORPUSCULAR VOLUME 91.5 fL (81-99); MONOCYTES # (AUTO) 0.7 (0.2-0.8); MONOCYTES % 6.5 % (4.4-11.3); NEUTROPHILS # (AUTO) 7.4 (2.1-6.9); NEUTROPHILS % 67.9 % (38.7-80.0); PLATELET COUNT 232 x10e3/uL (140-360); RED BLOOD COUNT 3.53 x10e6/uL (4.3-5.7); RED CELL DISTRIBUTION WIDTH 14.7 % (11.7-14.4)
--- NOTE | 2020-01-02 07:24 | NUR ---
Walking rounds done. Patient resting comfortably. Shift report given to oncoming nurse regarding patient's status.
[2020-01-02 07:27] LABS: ALBUMIN 2.7 g/dL (3.5-5.0); ALBUMIN/GLOBULIN RATIO 0.5 (0.8-2.0); ANION GAP 19.4 mmol/L (8-16); CALCIUM 8.4 mg/dL (8.4-10.2); CREATININE, SERUM 3.66 mg/dL (0.72-1.25); POTASSIUM 4.4 mmol/L (3.5-5.1)
--- NOTE | 2020-01-02 08:24 | Diagnostic Imaging Report ---
PROCEDURE: Conversion of non-tunneled to tunneled central venous catheter Procedural Personnel Attending physician(s): Susanna Fellow physician(s): None Resident physician(s): None Advanced practice provider(s): None Pre-procedure diagnosis: CYNDY Post-procedure diagnosis: Same Indication: Performance of hemodialysis Additional clinical history: None Complications: No immediate complications. IMPRESSION: Conversion of right-sided internal jugular non-tunneled central venous catheter for a tunneled dialysis catheter, with tip in the expected location of the right atrium. Plan: The catheter may be used immediately. PROCEDURE SUMMARY: - Temporary central venous catheter removal - Tunneled central venous catheter insertion with fluoroscopic guidance - Additional procedure(s): None PROCEDURE DETAILS: Pre-procedure History and imaging of central venous access reviewed (QCDR): Yes Consent: Informed consent for the procedure including risks, benefits and alternatives was obtained and time-out was performed prior to the procedure. Preparation (MIPS): The site was prepared and draped using all elements of maximal sterile barrier technique including sterile gloves, sterile gown, cap, mask, large sterile sheet, sterile ultrasound probe cover, hand hygiene and cutaneous antisepsis with 2% chlorhexidine. Medical reason for site preparation exception (MIPS): Not applicable Anesthesia/sedation Level of anesthesia/sedation: Moderate sedation (conscious sedation) 1mg Versed, 100mcg Fentanyl Anesthesia/sedation administered by: Independent trained observer under attending supervision with continuous monitoring of the patient?s level of consciousness and physiologic status Total intra-service sedation time (minutes): 30 Catheter exchange Local anesthesia was administered. A wire was passed through the indwelling central venous catheter and into the central veins. The catheter was removed, and a peel-away sheath was placed. An incision was made near the venous access site and the catheter was tunneled subcutaneously to the venous access site. The catheter was advanced via a peel-away sheath into the vein under fluoroscopic guidance. Catheter tip location was fluoroscopically verified and a permanent image was stored. Catheter placed: [employer] Catheter size (Canadian): 15.5 Canadian Catheter flush: Heparin (1000 units/mL) Closure The access site was closed and a sterile bandage was applied. Access site closure technique: Tissue adhesive Catheter securement technique: Non-absorbable suture Contrast Contrast agent: None Contrast volume (mL): NA Radiation Dose Fluoroscopy time (minutes): 0.3 Reference air kerma (mGy): 3.2 Additional Details Additional description of procedure: None Equipment details: None Specimens removed: Temporary central venous catheter Estimated blood loss (mL): Less than 10 Standardized report: [email or web address] Attestation Signer name: Valentine Corbett MD I attest that I was present for the entire procedure. I reviewed the stored images and agree with the report as written. Signed by: Valentine Corbett MD on 01/02/2020 8:21 AM
[2020-01-02] MEDS: FENOFIBRATE 145 MG TAB PO SCH (09:05)
[2020-01-02] MEDS: FAMOTIDINE 20 MG/2 ML VIAL IV SCH ×2 (09:05→17:41)
[2020-01-02] MEDS: MIDODRINE HCL 5 MG TABLET PO SCH ×3 (09:05→16:00)
--- NOTE | 2020-01-02 11:13 | Progress Note ---
DATE: SUBJECTIVE: The patient is being evaluated. Available labs and notes reviewed. Discussed with the nurse. Discussed with the patient. REVIEW OF SYSTEMS: No new complaints. The patient is n.p.o. for renal biopsy. No nausea, vomiting, fever, chills, chest pain, shortness of breath, headache, rash, dysuria, pyuria, cough. PHYSICAL EXAMINATION: VITAL SIGNS: Temperature 98.1, pulse is 91, respirations 20, blood pressure 112/69. GENERAL: Alert and oriented, no acute distress. CV: S1, S2. CHEST: Equal expansion. Clear to auscultation. No acute distress. HEENT: Moist. No pallor. No JVD. EXTREMITIES: No significant edema. Moves all. MEDICATIONS: Reviewed. As far as Infectious Disease point of view, the patient is on ampicillin. LABORATORY STUDIES: White count of 10.85, hemoglobin 10.3, platelet 232. Sodium 137, potassium 4.4, creatinine 3.66. Serology; HSV, PCR and urine histoplasma antigen pending. CMV IgM, EBV, IgM, RPR, Toxo IgG, HIV all negative so far. IMAGING: No new radiology studies available. ASSESSMENT AND PLAN: 1. Acute kidney injury. 2. Altered mental status. 3. Pneumonia. 4. Fever. 5. Debility. 6. Obesity. 7. Continue with ampicillin for a total of 3 weeks. The patient is scheduled for renal biopsy today. 8. Continue to monitor the patient clinically. Follow up with the labs. Discussed with Dr. Vargas in details. Please refer to chart for more information. Continue with PT/OT. Thank you for this dictation. Dictated by Beni Hooks PA-C (Al) Kristian Vargas MD /MODL /[id number]
--- NOTE | 2020-01-02 12:15 | NUR ---
SPOKE WITH DAUGHTER SIGNED CHOICE FOR [facility], FILED IN CHART AND FAXED CLINICALS TO [phone]
--- NOTE | 2020-01-02 12:30 | NUR ---
ST Note: Pt NPO for procedure. Will f/u tomorrow 01/03/20 as able.
[2020-01-02] MEDS ORDERED: MIDAZOLAM HCL 2 MG/2 ML VIAL ONE (12:33)
[2020-01-02] MEDS ORDERED: FENTANYL CITRATE/PF 100MCG/2 ML INJ ONE (12:33)
--- NOTE | 2020-01-02 14:48 | Diagnostic Imaging Report ---
PROCEDURE: Ultrasound-guided biopsy Procedural Personnel Attending physician(s): Valentine Corbett MD Fellow physician(s): None Resident physician(s): None Advanced practice provider(s): None Pre-procedure diagnosis: CYNDY Post-procedure diagnosis: Same Indication: Organ dysfunction Previous biopsy of same target (QCDR): No Additional clinical history: None Complications: No immediate complications. IMPRESSION: Ultrasound-guided nonfocal biopsy of left renal cortex. Plan: Specimen(s) sent for evaluation. PROCEDURE SUMMARY: - Percutaneous US-guided coaxial core needle biopsy - Additional procedure(s): None PROCEDURE DETAILS: Pre-procedure Reference imaging for biopsy target: None Consent: Informed consent for the procedure including risks, benefits and alternatives was obtained and time-out was performed prior to the procedure. Preparation: The site was prepared and draped using maximal sterile barrier technique including cutaneous antisepsis. Anesthesia/sedation Level of anesthesia/sedation: Moderate sedation (conscious sedation) 1mg Versed 50mcg Fentanyl Anesthesia/sedation administered by: Independent trained observer under attending supervision with continuous monitoring of the patient?s level of consciousness and physiologic status Total intra-service sedation time (minutes): 30 Imaging prior to biopsy The patient was positioned prone. Initial ultrasound was performed. Biopsy target: - Maximal diameter (cm): NA - Location: Left renal cortex Other findings: None Biopsy Local anesthesia was administered. Under US guidance, the biopsy needle was advanced to the target and biopsy was performed. Coaxial needle: 17 gauge Core needle biopsy device: [employer] Core needle size: 18 gauge Number of core specimens: 4 Needle removal The biopsy needle was removed and a sterile dressing was applied. Tract embolization: None Imaging following biopsy Immediate post-biopsy ultrasound was performed. Post-biopsy imaging findings: No hematoma Additional Details Additional description of procedure: None Equipment details: None Specimens removed: Biopsy samples as detailed above Estimated blood loss (mL): Less than 10 Standardized report: [email or web address] Attestation Signer name: Valentine Corbett MD I attest that I was present for the entire procedure. I reviewed the stored images and agree with the report as written. Signed by: Valentine Corbett MD on 01/02/2020 2:45 PM
--- NOTE | 2020-01-03 | Progress Note ---
DATE: Renal Followup Progress Note SUBJECTIVE: The patient was seen and evaluated early mid morning with daughter present at bedside. I spent significant period of time talking with her about overall plan of care. He is currently making good amount of urine output, but I am not sure if it is recorded accurately in the computer. His labs are improving daily. Renal biopsy is scheduled for today. PHYSICAL EXAMINATION: VITAL SIGNS: Temperature is 98.5, pulse is 92, respiratory rate is 20, blood pressure is 129/65, pulse ox 99%. He is on 2 L nasal cannula. GENERAL: Not in acute distress. Alert and oriented x3. Cooperative on examination. HEENT: Head; normocephalic, atraumatic. Eyes; pupils are equal, round, and reactive to light bilaterally. Extraocular movements intact bilaterally. Throat; no evidence of erythema or exudates in the posterior pharynx. Has poor dentition. NECK: Supple. Good range of motion. PULMONARY: Clear to auscultation bilaterally. No wheezing, no rales, no rhonchi, no crackles appreciated. CARDIOVASCULAR: Positive S1 and S2. No murmurs, rubs, or gallops appreciated. ABDOMEN: Soft, nondistended, and nontender to palpation. Bowel sounds present. MUSCULOSKELETAL: Strength is 5/5 throughout. No evidence of any muscle deficits on examination. No weakness appreciated. NEUROLOGIC: Cranial nerve II through XII grossly intact. No evidence of any neurological deficits on exam. SKIN: Intact. Warm to touch. Good cap refill. PSYCHIATRIC: Normal affect and mood. EXTREMITIES: No edema. Good range of motion throughout. LABORATORY DATA: Show white count 10, hemoglobin 10, hematocrit is 32, platelets 232. Chemistry; sodium 137, potassium 4.4, chloride 100, bicarb 20, anion gap of 19, BUN 58, creatinine 3.6, glucose is 110, calcium is 8.4. IMPRESSION: 1. Acute kidney injury with underlying presumed chronic kidney disease secondary to acute tubular necrosis presumably. 2. Rhabdomyolysis. 3. Anion gap metabolic acidosis. 4. Uremia. 5. Volume overload-resolved. PLAN: At this time, he will not receive dialysis today. He will get a renal biopsy. Scheduled for HD tomorrow. His labs seem to be stable, does not show any evidence of renal recovery. I suspect this is more chronic disease. We are going to get a renal biopsy today and I will talk with the integration solution architect that encompass about the plan of care and for him to continue to follow very closely on this patient. He may not really truly needs long-term dialysis because he is making good urine output and his labs seem to be stable. He does need very close followup as an outpatient with the integration solution architect. I discussed this plan of care with the daughter at bedside for more than 25 minutes. I discussed overall plan of care and answered all her questions at bedside. We will continue same plan of care. Monitor closely. Get a.m. labs. MD RADHA Mariano/MODL /[id number]
[2020-01-03] MEDS: AMPICILLIN SOD 2 GM/NS 100ML 100 ML IV SCH (00:18)
[2020-01-03 05:20] VITALS: BP 114/65
[2020-01-03 06:22] LABS: BASOPHILS % 0.4 % (0.0-1.0); EOSINOPHILS # (AUTO) 0.1 (0.0-0.4); EOSINOPHILS % 0.7 % (0.0-6.0); HEMATOCRIT 31.3 % (38.2-49.6); LYMPHOCYTES # (AUTO) 2.2 (1.0-3.2); LYMPHOCYTES % 20.1 % (18.0-39.1); MEAN CORPUSCULAR HEMOGLOBIN 28.9 pg (28-32); MEAN CORPUSCULAR HGB CONC 31.9 g/dL (31-35); MEAN CORPUSCULAR VOLUME 90.5 fL (81-99); MONOCYTES # (AUTO) 0.8 (0.2-0.8); MONOCYTES % 7.5 % (4.4-11.3); NEUTROPHILS # (AUTO) 7.5 (2.1-6.9); PLATELET COUNT 239 x10e3/uL (140-360); RED BLOOD COUNT 3.46 x10e6/uL (4.3-5.7); RED CELL DISTRIBUTION WIDTH 14.7 % (11.7-14.4)
[2020-01-03 06:55] LABS: ALBUMIN 2.6 g/dL (3.5-5.0); ALBUMIN/GLOBULIN RATIO 0.4 (0.8-2.0); ANION GAP 16.8 mmol/L (8-16); CALCIUM 8.8 mg/dL (8.4-10.2); CREATININE, SERUM 3.18 mg/dL (0.72-1.25); POTASSIUM 4.8 mmol/L (3.5-5.1)
--- NOTE | 2020-01-03 07:01 | NUR ---
Patient resting comfortably. Bed-side report given to oncoming nurse.
[2020-01-03 07:25] VITALS: BP 130/65
--- NOTE | 2020-01-03 07:25 | NUR ---
PT UP IN BED C/O RT SHOULDER PAIN.INFORMED FAMILY WOULD SPEAK TO PHYSICAN,
[2020-01-03] MEDS: MIDODRINE HCL 5 MG TABLET PO SCH ×3 (08:00→16:00)
[2020-01-03 08:08] VITALS: BP 130/70
[2020-01-03] MEDS: FAMOTIDINE 20 MG/2 ML VIAL IV SCH ×2 (08:42→17:00)
[2020-01-03] MEDS: FENOFIBRATE 145 MG TAB PO SCH (08:42)
--- NOTE | 2020-01-03 09:55 | NUR ---
Christian Coreas with [facility]. Pt has been approved. Pending clearance from Dr. Hopson. Lyudmila will give MOT once we have dc order.
--- NOTE | 2020-01-03 10:25 | NUR ---
Spiritual Concern: Pt worried about his who is also ill. Pt's daughter, Pamela, at bedside. Provided hospitality, prayer, and information on how to reach secy, if needed. No need to follow at this time. LUIS GARCIA Distribution Supervisor Spiritual Care Department O: [phone]
--- NOTE | 2020-01-03 11:57 | Progress Note ---
DATE: SUBJECTIVE: The patient is seen and evaluated. Available labs and notes reviewed. Discussed with the daughter. Discussed with Dr. Vargas in details. Please refer to chart for more information. REVIEW OF SYSTEMS: The patient has no complaints, however, daughter complained that the patient has a tender right shoulder. She thinks is from biopsy when the patient was laid on his right side, however, pain was there per patient prior to thoracentesis. PHYSICAL EXAMINATION: VITAL SIGNS: Temperature 97.6, pulse is 94, respiration 20, and blood pressure 130/70. GENERAL: Alert and oriented, no acute distress. CV: S1 and S2. CHEST: Equal expansion. Clear to auscultation. No acute distress. HEENT: Moist. No pallor. No JVD. EXTREMITIES: The patient guarding his right shoulder, slightly more swollen, is bigger than the left shoulder and very tender to touch. Zero range of motion when I doing the physical exam due to pain. The patient is not moving his right shoulder. MEDICATIONS: Medication list reviewed and from Infectious Disease point of view, the patient is on ampicillin. LABORATORY STUDIES: White blood cells 10.67, hemoglobin 10, and platelets 239. Sodium 136, potassium 4.8, and creatinine 3.18. HSV PCR and histoplasma antigen urine still pending. Previous other serologies including RPR, coronavirus, CMV EBV, toxo and HIV all negative. IMAGING: The patient is status post renal biopsy. MICROBIOLOGY: No new microbiology studies available. ASSESSMENT AND PLAN: 1. Right shoulder pain/swelling. 2. Acute kidney injury, status post renal biopsy. 3. Pneumonia. 4. Fever, improved. 5. Obesity/debility. 6. The patient is on ampicillin for a total of 3 weeks. We will follow with a renal biopsy. The patient apparently approved for assisted facility versus LTAC. However, the right shoulder pain, we will get MRI of the right shoulder without contrast in the setting of patient with chronic kidney injury with elevated creatinine level. The plan of care was discussed with the nurse. Discussed with Dr. Vargas. Further management of this patient is based on daily findings on laboratory and physical examination. Discussed with the daughter. Please refer to chart for more information. Dictated by Beni Hooks PA-C (Al) Zaher Shebib, MD /CONSTANTINE /[id number]
[2020-01-03 12:02] VITALS: BP 130/66
--- NOTE | 2020-01-03 13:37 | Diagnostic Imaging Report ---
TECHNIQUE: Magnetic resonance imaging of the RIGHT SHOULDER was performed WITHOUT injected contrast. COMPARISON: None available. HISTORY: Right shoulder pain FINDINGS: MUSCLES AND TENDONS: Rotator Cuff: Tendons: Massive rotator cuff tear with full-thickness full width tearing of the supraspinatus and infraspinatus with retraction beyond the glenohumeral joint. Muscles: Atrophy of the rotator cuff musculature. Biceps Tendon: The long head of the biceps tendon is within the bicipital groove with intra-articular tendinopathy. GLENOHUMERAL JOINT: High riding humeral head. Glenoid Labrum: Degenerative labral tearing. Articular Cartilage: Cartilage thinning without focal defect. AC JOINT AND ACROMION: Moderate hypertrophic degenerative changes of the acromioclavicular joint. Subacromial spurring. BONE: Cystic change on the greater tuberosity. No acute fracture. SOFT TISSUES: Otherwise, the soft tissues appear unremarkable. IMPRESSION: Massive rotator cuff tear with retraction and atrophy. High riding humeral head with glenohumeral degenerative arthrosis and subacromial spurring. Signed by: Dr. Tony Mancuso M.D. on 01/03/2020 1:33 PM
[2020-01-03 16:13] VITALS: BP 128/68
--- NOTE | 2020-01-03 16:29 | NUR ---
[facility] DISCHARGE INFORMATION PATIENT HAS BEEN ACCEPTED TO: [address] [place] [address] ACCEPTING ASSOCIATE PATHOLOGIST: Amrik Lange ACCEPTING MD: Dr. Susi Leone ROOM: will be assigned on admission NURSE CALL REPORT TO: [phone] THE FOLLOWING DOCUMENTS MUST ACCOMPANY PATIENT FOR TRANSFER: copy of chart, transfer MAR COPIED CHART: unit support representative MOT INFO RECEIVED FROM: Lyudmila Quezada PHYSICIANS ORDER/RECONCILED MED LIST: to be obtained by bedside nurse [id number] DNR: n/a MOT completed and placed with pt's packet at nurses station. GISSELLE Weber and JALYN Rowleysupervisor [employer] were notified of MOT.
[2020-01-03] MEDS ORDERED: ACETAMINOPHEN325 M1 PO (16:41)
[2020-01-03] MEDS ORDERED: HEPARIN SO1000 UNIT1 IV (16:41)
[2020-01-03] MEDS ORDERED: MANNITOL50 ML IV (16:41)
[2020-01-03] MEDS ORDERED: TESSALON PERLE100 MG PO (16:41)
[2020-01-03] MEDS ORDERED: MIDODRINE HCL5 MG PO (16:41)
[2020-01-03] MEDS ORDERED: Ondansetron Oral Disintegratin PO (16:41)
[2020-01-03] MEDS ORDERED: MUCINEX DM ER1 EACH PO (16:41)
[2020-01-03] MEDS ORDERED: FAMOTIDINE20 MG/2 ML IV (16:41)
[2020-01-03] MEDS ORDERED: FENOFIBRATE145 MG PO (16:41)
[2020-01-03] MEDS ORDERED: HYDRALAZIN20 MG/1 ML IV (16:41)
[2020-01-03] MEDS ORDERED: AMPICILLIN SODIU2 GM IV (16:41)
[2020-01-03] MEDS ORDERED: ALBUTEROL2.5 MG/3 M NEB (16:41)
--- NOTE | 2020-01-03 19:21 | NUR ---
PT TRANSPORTED TO [facility] VIA AMBULANCE,IV INTACT,BOSCH TO BSD ,O2 2L NC IN [facility].
--- NOTE | 2020-01-04 01:20 | Progress Note ---
DATE: 01/03/2020 Nephrology Progress Note SUBJECTIVE: The patient was seen and evaluated early this afternoon. He was doing well with no complaints. Good urine output. No HD today as his labs are much improved. Discussed plan of care with family at bedside. PHYSICAL EXAMINATION: VITAL SIGNS: Temperature is 97.9, pulse 99, respiratory rate is 20, blood pressure 130/66, and pulse ox 100% on 2 L of nasal cannula. GENERAL: Not in acute distress. Alert and oriented x3. Cooperative on examination. HEENT: Head; normocephalic, atraumatic. Eyes; pupils are equal, round, and reactive to light bilaterally. Extraocular movements intact bilaterally. Throat; no evidence of erythema or exudates in the posterior pharynx. Has poor dentition. NECK: Supple. Good range of motion. PULMONARY: Clear to auscultation bilaterally. No wheezing, no rales, no rhonchi, no crackles appreciated. CARDIOVASCULAR: Positive S1 and S2. No murmurs, rubs, or gallops appreciated. ABDOMEN: Soft, nondistended, and nontender to palpation. Bowel sounds present. MUSCULOSKELETAL: Strength is 5/5 throughout. No evidence of any muscle deficits on examination. No weakness appreciated. NEUROLOGIC: Cranial nerve II through XII grossly intact. No evidence of any neurological deficits on exam. SKIN: Intact. Warm to touch. Good cap refill. PSYCHIATRIC: Normal affect and mood. EXTREMITIES: No edema. Good range of motion throughout. LABORATORY FINDINGS: Show white count 10.6, hemoglobin 10, hematocrit is 31, platelets of 239. Coagulation; PT 13, INR 0.99, PTT 31. Chemistry; sodium 136, potassium 4.8, chloride 103, bicarbonate 21, anion gap of 16, BUN is 60, creatinine downtrended 3.18, glucose is 113, calcium is 8.8. Renal biopsy: I spoke with the renal pathologist today by phone, preliminary consistent with ATN with also myoglobin cast secondary to rhabdomyolysis. He had interstitial fibrosis with too large for around 10%. He had moderate atherosclerosis disease. IF was pending. It seems to be that the IF will likely be negative according to the pathologist. IMPRESSION: 1. Acute kidney injury, now diagnosed with acute tubular necrosis secondary to rhabdomyolysis. 2. Anion gap metabolic acidosis-resolved. 3. Uremia-improved. 4. Volume overload-resolved. PLAN: At this time, the patient is making good urine output. We looked at the labs over the last 2 days. His creatinine is down trending and it has improved tremendously. Electrolytes are stable. He is making good urine output. I already spoke with the family about the renal biopsy, having ATN, likely secondary to underlying rhabdomyolysis according to pathology results. He has minimal chronicity. We will have to monitor him very closely. He does have a tunneled catheter. In the event he does get transfer to [facility], I spoke with the senior enterprise architect at the other facility who will be taking care of him and discussed the plan of care. He will likely not be on dialysis anymore. His catheter can likely be removed, but close monitoring will be advised. Otherwise, plan of care discussed with the patient, the patient's daughter, nursing staff was present throughout the entire conversation. The patient will be cleared for discharge from a renal standpoint with close followup with the senior enterprise architect at [facility]. MD RADHA Mairano/CONSTANTINE /[id number]
--- NOTE | 2020-01-04 05:57 | Discharge Summary ---
CONSULTING PHYSICIANS: Include Dr. Kristian Vargas with Infectious Disease, Dr. Kenyon Patterson with Pulmonary/Critical Care Medicine, Dr. Sheldon Hatch with Nephrology. CHIEF COMPLAINT: Dehydration, CYNDY, rhabdomyolysis, and near syncope. HISTORY OF PRESENT ILLNESS: The patient is a 69-year-old male, who admitted with complaints of generalized weakness/dizziness intermittently for a few days. He denied falls, trauma, nausea, vomiting, pain or wounds. On admission, he admitted to having a poor appetite. According to the emergency department physician's notes, he was there for dizziness in the morning of admission when getting out of bed, stated that he had been feeling weak, running low-grade temperature of 100.[address] Terry, who is his primary care physician. PAST MEDICAL HISTORY: Hypertension. PAST SURGICAL HISTORY: None. FAMILY HISTORY: Grandmother had cancer. SOCIAL HISTORY: The patient smoked cigars. Occasional alcohol. ALLERGIES: NO KNOWN ALLERGIES. ADMITTING DIAGNOSES: 1. Rhabdomyolysis. 2. Weakness/dizziness. 3. Acute kidney injury. 4. Hypertriglyceridemia. 5. Fever of unknown origin. 6. Hypertension. DISCHARGE DIAGNOSES: 1. Acute renal failure. 2. Sepsis, possible listeria, right shoulder sepsis ruled out. 3. Controlled hypertension. He had leukocytosis during his stay. Influenza A and B were negative. His COVID-19 was negative. He was given IV fluids for the rhabdomyolysis with a CK of 1014. Rocephin was used for the sepsis initially at the beginning when thought that he had a urinary tract infection. It was noted that he had elevated ferritin level, T-max 103.1. On or about 12/22, elevated LFTs were noted. On admission, WBC is 11.35, hemoglobin 12.4, hematocrit 37.1, platelets 185. PT 14.9, INR 1.1, PTT 36.3. Sodium 132, potassium 4.3, chloride 100, CO2 of 19, anion gap 17.3, BUN 58 and creatinine is 4.08, estimated GFR 15, glucose 194. Lactic acid 1.3, calcium 8.9, magnesium 2.1, total bilirubin 0.5, AST 119, ALT 118, alkaline phosphatase. Creatine kinase 805, CK-MB 6.0, troponin I less than 0.001. B-type natriuretic peptide 75.1. Total protein 7.9, albumin 3.3. UDS was negative. C-ANCA titer was less than 1-20, as was the P-ANCA titer and atypical P-ANCA, double-strand DNA antibody was 4. Complement C3 was 156, complement C4 was 36. Cytomegalovirus IgG antibody greater than 10. CMV IgM antibody less than 30. Alexandro-Quan virus IgG antibody greater than 600. EBV IgM antibody less than 36. EBV early antigen IgG was not performed. EBV nuclear IgG antibody 45.8. Toxoplasma IgG antibody less than 3 as well as the toxoplasma IgM antibody. HIV was nonreactive. Herpes simplex virus 1 and 2 DNA by PCR pending. Urine histoplasma Ag is pending. Coronavirus by PCR was not detected on December 20 and December 21. A COVID IgG was done via Dr. Hopson's office and Dr. Hopson stated that he would contact the physicians at [facility] and provide those results when they became available. Urine culture on 12/20, negative. Blood cultures x2 showed no growth after 5 days on both 12/20 and 12/25. CT of the brain showed no acute intracranial abnormalities. CT of the chest done on 12/20, showed no focal pneumonia or pulmonary edema, nonspecific prominent mediastinal lymph nodes measuring up to 1.5 cm, left lower lobe 6 mm pulmonary nodule. MRI of the brain on 12/20, was a limited exam due to motion artifacts. No acute intracranial abnormalities. Mild chronic microvascular ischemic changes. Carotid Doppler ultrasound done on 12/21, showed evidence of carotid disease without significant carotid stenosis in both the right and left carotid vessels of concern in the bulb in the bifurcation bilaterally. 12-lead EKGs had shown normal sinus rhythm. On December 26, with a heart rate of 96, sinus tachycardia on December 20 with a heart rate of 108. On 12/21, he had a CT of the abdomen and pelvis, which showed coronary artery calcific atherosclerosis and mild cardiomegaly. CT findings of anemia, hepatosteatosis, bilateral perinephric fat stranding, likely due to renal insufficiency or senescence, pyelonephritis less likely a consideration. Abdominal ultrasound done on December 22, showed hepatosteatosis, benign-appearing right renal cysts. HIDA scan was done on 12/22, filling of the gallbladder excluded diagnosis of acute cystic duct obstruction/acute cholecystitis. Normal gallbladder ejection fraction of 99%. Did not support the clinical diagnosis of acute cholecystitis/gallbladder dyskinesia. A renal ultrasound on 12/22, showed simple cysts in the kidneys. No hydronephrosis. Chest x-ray showed persistently low lung volumes with new opacifications of the left diaphragm, either due to atelectasis and pulmonary effusion or pneumonia. On or about 12/24, he was transferred to ICU for respiratory distress. At one point, he required BiPAP, he was on 4 L of oxygen via nasal cannula. A right IJ Trialysis catheter was placed and he required hemodialysis. Per the practicing md anesthesiologist's note, dated 12/25, he had his first hemodialysis treatment on 12/25/2019, and tolerated well. Diagnosis includes acute kidney injury, presumed to be underlying acute tubular necrosis, rhabdomyolysis, and anion gap, metabolic acidosis, and hyperkalemia. He had a rapid response late on 12/23. Desaturation to 79% on room air. Although it was not present on admission, the patient had acute encephalopathy possibly metabolic due to a viral infection. The acute respiratory failure with hypoxia was also not present on admission. Sepsis was presumably due to a viral source. He had elevated AST with transaminitis. They gradually trended down to normal range at a modified barium swallow on 12/26, which apparently he passed. He underwent a lumbar puncture on 12/27. Renal biopsy was done on 01/01, by Dr. Corbett. After the renal biopsy, complained of pain in the right shoulder. MRI of the right shoulder was done showing a massive rotator cuff tear with retraction and atrophy. High-riding humeral head with glenohumeral degenerative arthrosis and subacromial spurring. These results were discussed with Dr. Hopson. These are likely chronic shoulders not fixable and pain is not due to infection. The patient will be transferred to [facility] on a renal diet. The patient can follow up with Dr. Vargas, Dr. Leone will be the rehabilitation doctor there. Dr. Brar will be the attending and Dr. Jensen will be the practicing md anesthesiologist, which is the physician that Dr. Hatch prefers. According to Dr. Hatch, he will not do dialysis today. Dr. Hatch spoke with the hemodialysis nurse this morning. It seems that he may have recovered. We will keep the Trialysis hemodialysis catheter, send him after rehab and practicing md anesthesiologist will follow up there. It is likely acute on top of chronic. This has been explained to the daughter. She did not have any additional questions today. The patient states his shoulder pain is 7/10. He has a mild cough. He did have a bowel movement today. PHYSICAL EXAMINATION: VITAL SIGNS: T-max 99.1, current temperature 97.6, heart rate 94, blood pressure 138/70, respirations 20, oxygen saturation 99%, on 3 L of oxygen via nasal cannula. He has a Hernandez catheter. GENERAL: Supine. LUNGS: Clear to auscultation. HEENT: EOMI. NECK: Supple. CARDIOVASCULAR: Regular rate and rhythm. No murmur. ABDOMEN: Bowel sounds positive. Soft, nontender. EXTREMITIES: Without pitting edema. He does have venous stasis with some hardening of the vessels noted. NEUROLOGICAL: GCS 14 to 15. He is slow to respond to questions at times, but does have appropriate answers. Activity level as tolerated. The patient will be on ampicillin IV for 3 weeks. Dictated by Clarence Haywood, SHARAD Reginald Hopson MD HWP/MODL /[id number]
== END 2020-01-03 20:14 | DRG 871 ==
LOC: ER 11:45 → ERHOLD 14:22 → IMCU 16:39 → MED/SURG 18:22 → MED/SURG2 12-23 18:46 → ICU 12-24 22:39 → IMCU 12-29 20:30 → MED/SURG3 01-01 14:21
PROVIDERS: ADMIT Internal Medicine; ATTEND Internal Medicine
PROC: 5A09357 Assistance with Respiratory Ventilation, Less than 24 Consecutive Hours, Continuous Positive Airway Pressure (ICD-10-PCS; principal; 2019-12-25)
PROC: 02HV33Z Insertion of Infusion Device into Superior Vena Cava, Percutaneous Approach (ICD-10-PCS; 2019-12-25)
PROC: B548ZZA Ultrasonography of Superior Vena Cava, Guidance (ICD-10-PCS; 2019-12-25)
PROC: 5A1D70Z Performance of Urinary Filtration, Intermittent, Less than 6 Hours Per Day (ICD-10-PCS; 2019-12-25)
PROC: 5A1D70Z Performance of Urinary Filtration, Intermittent, Less than 6 Hours Per Day (ICD-10-PCS; 2019-12-26)
PROC: 5A1D70Z Performance of Urinary Filtration, Intermittent, Less than 6 Hours Per Day (ICD-10-PCS; 2019-12-27)
PROC: 009U3ZX Drainage of Spinal Canal, Percutaneous Approach, Diagnostic (ICD-10-PCS; 2019-12-28)
PROC: 5A1D70Z Performance of Urinary Filtration, Intermittent, Less than 6 Hours Per Day (ICD-10-PCS; 2019-12-28)
PROC: 5A1D70Z Performance of Urinary Filtration, Intermittent, Less than 6 Hours Per Day (ICD-10-PCS; 2019-12-29)
PROC: 02PY33Z Removal of Infusion Device from Great Vessel, Percutaneous Approach (ICD-10-PCS; 2019-12-31)
PROC: 02H633Z Insertion of Infusion Device into Right Atrium, Percutaneous Approach (ICD-10-PCS; 2019-12-31)
PROC: 0JH63XZ Insertion of Tunneled Vascular Access Device into Chest Subcutaneous Tissue and Fascia, Percutaneous Approach (ICD-10-PCS; 2019-12-31)
PROC: B548ZZA Ultrasonography of Superior Vena Cava, Guidance (ICD-10-PCS; 2019-12-31)
PROC: 5A1D70Z Performance of Urinary Filtration, Intermittent, Less than 6 Hours Per Day (ICD-10-PCS; 2019-12-31)
PROC: 0TB13ZX Excision of Left Kidney, Percutaneous Approach, Diagnostic (ICD-10-PCS; 2020-01-01)
PROC: 5A1D70Z Performance of Urinary Filtration, Intermittent, Less than 6 Hours Per Day (ICD-10-PCS; 2020-01-01)
DX: A32.7 Listerial sepsis (principal); J96.01 Acute respiratory failure with hypoxia; G93.41 Metabolic encephalopathy; J18.9 Pneumonia, unspecified organism; N17.0 Acute kidney failure with tubular necrosis; J69.0 Pneumonitis due to inhalation of food and vomit; N17.9 Acute kidney failure, unspecified; M62.82 Rhabdomyolysis; E87.2 Acidosis; E86.0 Dehydration; R55 Syncope and collapse; I10 Essential (primary) hypertension; Z80.9 Family history of malignant neoplasm, unspecified; Z72.0 Tobacco use; E78.1 Pure hyperglyceridemia; E66.9 Obesity, unspecified; Z68.37 Body mass index [BMI] 37.0-37.9, adult; R91.1 Solitary pulmonary nodule; R94.5 Abnormal results of liver function studies; Z11.59 Encounter for screening for other viral diseases; R53.81 Other malaise; R53.1 Weakness; Z81.1 Family history of alcohol abuse and dependence; K76.0 Fatty (change of) liver, not elsewhere classified; E87.5 Hyperkalemia; N28.1 Cyst of kidney, acquired; K52.9 Noninfective gastroenteritis and colitis, unspecified; M25.511 Pain in right shoulder
CPT/HCPCS: 36415; 36556; 36558; 36600; 50200; 62328; 70450; 70551; 71045; 71250; 74176; 74230; 74470; 76705; 76770; 76937; 76942; 77001; 78227; 80048; 80053; 80061; 80307; 81001; 81015; 82044; 82140; 82550; 82553; 82570; 82728; 82805; 82945; 82948; 83036; 83605; 83615; 83625; 83735; 83880; 83970; 84100; 84145; 84152; 84156; 84157; 84300; 84443; 84484; 85025; 85610; 85651; 85730; 86021; 86140; 86160; 86225; 86335; 86592; 86644; 86645; 86663; 86664; 86665; 86777; 86778; 87040; 87086; 87385; 87390; 87400; 87529; 87635; 89051; 90962; 93005; 93306; 93880; 94640; 94660; 96361; 97139; 99284; A9537; C1769; C1892; G0433; G0435; J0610; J0692; J0696; J1450; J1644; J1650; J1817; J1940; J2001; J2150; J2250; J2930; J3010; J3370; J7030; J7040; J7050; J7799